=== PATIENT | female | born 1960 | race Caucasian/White ===

== ENCOUNTER → 2018-01-04 11:21 | Outpatient (CLI) | payer BC, SELFPAY ==
[2018-01-04 11:36] LABS: HCT 34.3 % (36.0-46.0); HGB 11.5 g/dL (12.0-15.5)
== END ==
PROVIDERS: PCP Family Medicine; Visit Provider Student in an Organized Health Care Education/Training Program
DX: D50.8 Other iron deficiency anemias (principal)
CPT/HCPCS: 36415; 85014; 85018

== ENCOUNTER 2018-01-06 11:30 | Outpatient (RCR) | payer BC, SELFPAY ==
--- NOTE | 2017-12-14 08:06 | IE_ITS ---
Date: 12/14/17 Referring: Prashant Lazaro DO M.D. Diagnosis: Sciatica (L) side P.T. Diagnosis: (L) LE sciatica secondary to nerve root compromise and intrinsic core weakness SUBJECTIVE: History of Present Illness: Petros presents to PT reporting chronic hx of episodic (L) LE sciatica, with more recent presentation of central LBP in the past month. All pain is insidious and pain primarily occurs if she has been sitting too long or lying supine. She feels good when she is out moving around or when standing. She denies any weakness or paraesthesias to the (L) LE. Pain Ratin/10 in the PM hours and currently is a 8/10 when she is sitting. Pain Location: Central low back as well as the (R) medial leg and lateral leg. Pt is a poor historian. Prior Level of Function: WNL Current Level of Function: Cannot tolerate light sitting or lying supine. Lying on either side she gets (R) leg pain. Pt is awakening intermittently throughout the night due to pain. Previous Treatment: She did see a chiropractor in November which made her symptoms worst so she discontinued. She is fearful of starting PT. Comorbidities: Denies, chronic sciatica and LBP Falls in the last year: __X__ No ____Yes - How many? ____ - (if over 2, balance SM needs to be completed) Reported hospitalizations in the last year - __X__ No ____ Yes - Dates of admission/reason: Medications: Tumeric for pain assist and denies the need for modalities. Quality of Life: __X__ Good Standardized Measures: MOLBPDQ: __24% Disability __ LEFS: 38% Disability OBJECTIVE: Posture: Lordotic with mild anterior pelvic tilt. Poor voluntary posture of forward head protrusion of shoulders with no obvious deformities. Observation: (behavior, atrophy, skin color, etc.) Flat affect with poor core awareness. Gait: WNL, toe and heel walk WNL Palpation: Remarkable tenderness to palpation through the (R) sacral border, sciatic notch and through the (R) lumbar paraspinals. Edema: None ROM: Lumbar spine: flexion 45* Extension WNL but with slight degree of (L) rotation at end range (B) side bend reaches lateral tibial femoral joint lines but with more segmental hypomobility into (R) side bend. Rotation to 60* (B) and not symptomatic (B) LEs are WNL And non irritable but is guarded with movement of the (R) hip initially restricted to 20* of IR and ER but once able to get pt to relax she demonstrates good articular mobility but end range soft tissue restriction. Joint Accessory Motion: Hypomobile through the thoracic and lumbar spine, but again pt is guarded with central lumbar PAs. She has central discomfort as well as unilateral discomfort but local to the segment being mobilized with no peripheral symptoms. Strength: Grossly 5/5 throughout (B) LEs demonstrating very poor intrinsic strength, requiring a great deal of verbal instructions for proper TrA contraction as well as glute contraction. Unable to complete hooklying marching without pelvic rocking and cannot complete segmental bridge. She does this more with over activity of paraspinals. Neuro: WNL LE screen. Special Tests: Defer lumbar quadrant due to pain dominant condition and pt's fear of pain. Negative PAs, dural SLR results in (R) hamstring pain but no back symptoms. Figure 4 and supine twist resulting in (R) buttock pain on the (R) and LE is WNL. Treatment: IE: [id number] Patient Education: Develop and review an HEP focusing on TrA isometric activation, (R) sciatic nerve flossing stage 5 for specifics. KX applied to all codes ____ Yes __X__ No Manual therapy: (62781u0). STM throughout the (R) thoraco lumbar paraspinals, (R) sacral border, (R) piriformis, _X_ Neuro Re-education - (95451 x0): TrA isometric contraction in hooklying with verbal cueing required. Direct treatment time: 60 minutes Total treatment time: 60 minutes ASSESSMENT: Patient is a 56-year-old female, referred for PT services with the diagnosis of (R) sciatica. Patient presents with clinical signs and symptoms consistent with this dx secondary to probable lumbar generation and intrinsic core weakness , extensive tested avoided today due to pt's fear of pain. As her symptoms calm down we will be able to further investigate this as needed at that time. , as demonstrated by the following impairment level findings: Weak intrinsic core musculature, hypomobility through thoraco lumbar spine and soft tissue dysfunction through the thoraco lumbar region and sacral border on the (R) side , soft tissue restriction through the (R) hip girdle. Impairments are contributing to the following functional limitations: Inability to tolerate prolonged sitting or supine positions. Patient is assessed as: ____ Low 80101 __X__ Moderate 48432 ____ High 85988 complexity, based on the following: History: See comorbidities and social history. Examination: See above for functional limitations and impairments. Presentation: X Evolving Decision-Making: X Moderate complexity 38 % Disability based on LEFS, MOLPBDQ 24% disability. __X__ Patient requires skilled PT intervention to remediate the above functional limitations to return to: __X__ Return to full functional mobility Prognosis: __X__ Good STG: __6__ weeks. 1. Pt is able to tolerate sitting for up to 45 minutes at a time without pain exceeding a 2/10. 2. Pt has undisturbed sleep. LTG: __11__ weeks. __X__ Return to premorbid level of function. __X__ Return to full, pain-free, functional mobility. __X__ Independent with self-maintenance program. PLAN: Patient to be seen 2 x per week, for 11 weeks, adjusting frequency of visits per patient symptoms and response to treatment. Treatment to include: X NRE- For intrinsic lumbopelvic femoral body awareness and muscle strengthening. X Manual therapy - [id number]: For lumbo pelvic mobilization and soft tissue mobilization. X Therapeutic exercise - [id number]- For gross core and LE strengthening, whole body conditioning. Thank you for this referral. Please do not hesitate to contact me with any questions or concerns regarding this patient's plan of care.
--- NOTE | 2017-12-21 12:39 | PTTR_ITS ---
DATE: 12/21/17 SUBJECTIVE: Hurst better after last treatment. OBJECTIVE: KX applied to all codes N/A Manual therapy: ([id number]). R prolonged SLR R leg pull for lumbar decompression R U KTC, flexion based stretching R hip ER and sacral soft tissue stretching, utilizing mulligan belt for MWM into ER, flexion overpressure. Repeat to IR for general mobilization and desensitization of the lumbopelvic complex. R supine twist stretch, and figure stretch with only 20 * ER to patient tolerance L sidelying 90/90 leg drop, for R lumbar decompression and facet gapping. L sidelying log roll mobilization, grade 4 STM R sacral border and sciatic notch IASTM down regulation thoracic and lumbar paraspinals. End with moist hot pack x 10 minutes post treatment, unsupervised. Direct treatment time: 30 minutes Total treatment time: 30 minutes
--- NOTE | 2017-12-23 14:00 | PTTR_ITS ---
DATE: 12/23/17 SUBJECTIVE: Petros stating she has not had any pain while sitting. Her main complaint is of some mild discomfort this morning when lying in bed trying to extend her R leg. She had discomfort down her R posterior thigh, but otherwise has had minimal pain since initiating PT. She is struggling with transverse abdominal activation and would like to review this. Pain number: [] Functional gains: [] Functional losses: [] Compliant with HEP: [] Yes [] No OBJECTIVE: [] KX applied to all codes [] Manual therapy: ([id number]).R prolonged straight leg raise Mulligan SLR, sciatic nerve flossing x 10 to the RLE, R hip IR and ER limited to 10 degrees due to pt guarding. Utilize Mulligan belt for lateral gliding and maintain this while performing hip flexion to 130 degrees. Then complete both IR and ER MWM into respective motions at a grade IV oscillation, followed by figure IV stretching as well as supine twist with improved mobility and reduced pain. L side lying complete log roll mobilization applying traction as well as rotational movement to lumbar spine of a grade IV oscillation. Unilateral PAs to the thoracic and lumbar segments of grade IV. STM consisting of thoracic and lumbar paraspinal release with pelvic traction. Deep strumming through L thoracic paraspinals,where more tension was appreciated through the R sacral border and sciatic notch. * X Neuro Re-education - (85499 x1):Hook lying static TRA isometric, with pt requiring verbal and manual cues for proper activation. Up regulation strumming to the transverse abdominal fasciae. Pt holds for 1 min, unable to hold statically for the entire minute, however, having to take breaks and she does hold her breath, so cuing needed for proper breathing. Direct treatment time: 40 min Total treatment time: 40 min Assessment: As per subjective report, improvement in symptoms since initiating PT. While she did require alot of verbal cuing for intrinsic activation today, this was certainly greatly improved compared to IE, so her body awareness is improving. I don't see it appropriate to proceed into any dynamic closed chain movements; however, until she demonstrates better static control of her intrinsics, to encourage proper body awareness and activation. Has fascial sling tension through the R sacral border and L lat and thoracic paraspinals consistent with suspicion of R lumbar nerve root compromise. In any event, she is improving to PT management per subjective report. Plan: Continue per POC 2x/week, with future treatments working on progression of intrinsic lumbar stabilization via closed chain hook lying activities and continued manual mobilization for R sciatic nerve mobility improvements, decompression through the R lumbar spine and STM. MYRON/fw
--- NOTE | 2017-12-28 13:07 | PTTR_ITS ---
DATE: 12/28/17 SUBJECTIVE: Pt reporting continued discomfort into her right buttock especially when sitting. She has been performing her stretches and working on her Kegel at home although does not know if she is doing it right. OBJECTIVE: Manual therapy: ([id number]). Provide mobilizations with movement utilizing Mulligan belt providing lateral distraction at the right hip while mobilizing into hip flexion to 110 degrees. Internal and external rotation stretching in 90 /90 position at the right hip. Sciatic nerve flossing in SLR position followed by Mulligan SLR x 10 reps. In prone perform DTM to the piriformis and glut musculature and trigger point release to the piriformis. Also work into her lumbar paraspinals bilaterally and right QL with less tone appreciated here. Therapeutic procedures ([id number]). * X HEP review: Review Kegel, diaphragmatic breathing techniques and PPT in hooklying position. Spend a significant amount of time here working on appropriate completion, body awareness and breathing techniques. Defer advancing intrinsic strengthening today due to the difficulty she has with isometric TrA. She will continue working on this at home increasing to 3 minute isometric with appropriate breathing techniques. Direct treatment time: 30 minutes Total treatment time: 30 minutes Dodie Ardon PTA
--- NOTE | 2017-12-30 10:30 | PTTR_ITS ---
DATE: 12/30/17 SUBJECTIVE: Patient notes continued discomfort down the posterior aspect of her R leg, as well as some central LBP into her glut musculature. She notes she has been practicing her intrinsic strengthening exercises at home. She is unsure if she is performing these correctly. Manual therapy: (23282w3). Patient received mobilization with movement at the R hip utilizing Mulligan belt for lateral distraction while bringing her into flexion, IR/ER. She received stretching of her piriformis, hamstrings, also applied sciatic nerve flossing in SLR position as well as Mulligan SLR x10 reps. In prone position, deep tissue mobilization techniques applied through the glut and piriformis musculature. Less tone appreciated through the paraspinals of the lumbar spine and QL. Trigger point release performed to the pirformis. Therapeutic procedures (09171w5). Review intrinsic stabilization exercises including diaphragmatic breathing, posterior pelvic tilting and Kegel activation. The patient does appear to have better understanding of activating her TRA. We progress this to mini marching with leg elevated on wedge pillow. She requires verbal and tactile cueing for appropriate movement mechanics, breathing techniques. She is going to start working on this at home. Direct treatment time: 30 mins Total treatment time: 40 mins (moist heat to lumbar spine x10 mins in prone no charge) LB/dl
--- NOTE | 2018-01-04 10:30 | PTTR_ITS ---
DATE: 01/04/18 SUBJECTIVE: Petrso reporting she continues to have pain in the R leg when extending her leg at night time, when changing position. Continues to have some R sided low back pain with sitting. She does feel that her symptoms are slightly improved, but nothing remarkable. She admits to not being overly compliant with her core activation. OBJECTIVE: Manual therapy: ([id number]). R prolonged SLR, Mulligan mobilization to the R hip with lateral glide mobilizing into flexion, ER/IR MWM, The patient having some anterior femoral and groin pain throughout, complete sustained AP hold and then completed further mobilization, which allowed for mobility to return to WNL, compared to initial 10 degrees of ER/IR which was painful. The completed cross body and figure 4 stretching, maintaining AP mobilization, lateral mobilization of the hip in respect to her pain. In L sidelying log roll mobilization at a grade 4 and 90/90 decompression of legs with legs over edge of the plinth to R low back. When completing 90/90 decompression, I recognize that her R femur tends to rest in IR, this leads to further strength exam. Strength: In prone, she is able to complete L leg extension with good stability. R hip extension she has pelvic rock and with L shoulder/lat lift off, she also has pelvic rock and almost complete lift off of the R LE. This indicates significant R glut weakness and intrinsic weakness. Therapeutic procedures (08867e3). L sidelying R clam, up regulation through the R glut med for facilitation. Cueing throughout for proper intrinsic core activation. Prone R glut activation with hip extension x10 L UE flexion x10 L UE and L leg lift off in prone x10. All are written up for HEP (see chart for specifics) * Direct treatment time: 45 mins Total treatment time: 45 mins A: Petros only making minimal gains since initiating PT. She does demonstrate some limitations through the R hip, which could potentially be a contributing factor to her R low back pain. Also discovered some R hip girdle and glut weakness today, contributing to her lumbar instability and intrinsic weakness. I attended to both of these findings today and will see how she responds. P: Proceed per POC, progress R glut and posterior fascial sling recruitment. JH/dl
--- NOTE | 2018-01-06 12:14 | PTTR_ITS ---
DATE: 01/06/18 SUBJECTIVE: Has felt great since last treatment, with no pain when changing position in bed. OBJECTIVE: KX applied to all codes: N/A Manual therapy: ([id number]). R prolonged SLR, and mid line cross Distraction of R FA joint at 90* with ER and IR, followed by Brenden PARSONM into ER, with lateral and AP glide, and Figure 4 stretch with AP glide. Log roll mobilization for decompression of R LB, grade 4++. Followed by 90/90 decompression. L UPA's grade 4++, R UPA's 4--. Thoracic PA's grade 4++ with multiple cavitations. Patient initially very limited, ut responds well to treatment with good motion restored. Seated thoracic rotation with grade 4 overpressure oscillations into end range. Review HEP. Direct treatment time: 30 minutes Total treatment time: 30 minutes
== END 2018-01-07 23:59 | disposition home or self-care (01) ==
LOC: PT 11:30
PROVIDERS: PCP Family Medicine; Referring Provider Family Medicine; Visit Provider Family Medicine
DX: M54.42 Lumbago with sciatica, left side (principal); G54.4 Lumbosacral root disorders, not elsewhere classified; M62.81 Muscle weakness (generalized)
CPT/HCPCS: 97110; 97112; 97140; 97162

== ENCOUNTER 2018-02-07 08:31 | Outpatient (CLI) | payer BC, SELFPAY ==
[2018-02-07 09:06] LABS: Absolute Basophil Count 0.01 k/cumm (0.0-0.2); Absolute Eosinophil Count 0.04 k/cumm (0.0-0.7); Absolute Lymphocyte Count 1.39 k/cumm (1.2-3.4); Absolute Monocyte Count 0.21 k/cumm (0.11-0.7); Absolute Neutrophil Count 1.03 k/cumm (1.2-6.7); Basophils % 0.4; Eosinophils % 1.5; HCT 36.1 % (36.0-46.0); HGB 11.9 g/dL (12.0-15.5); Lymphocytes % 51.9; Monocytes % 7.8; Neutrophils % 38.4; Platelet Count 231 x1000/uL (130-400); RBC 3.84 m/cumm (4.00-5.20); RBC Distribution Width 14.1 % (11.7-14.6); White Blood Cell Count 2.68 k/cumm (4.4-10.8)
[2018-02-07 09:51] LABS: ALT 29 U/L (12-78); AST 24 U/L (15-37); Albumin 3.8 g/dL (3.4-5.0); Alkaline Phosphatase 66 U/L (46-116); Anion Gap 8.8 mmol/L (3-11); BUN 9 mg/dL (7-18); Bilirubin, Total 0.3 mg/dL (0.2-1.0); CO2 26.2 mmol/L (21.0-32.0); Calcium 9.1 mg/dL (8.5-10.1); Chloride 105 mmol/L (98-107); Diff Comment Diff Reviewed; Glucose 83 mg/dL (70-100); Potassium 4.4 mmol/L (3.5-5.1); RBC Morphology Normal; Sodium 140 mmol/L (136-145); Total Protein 6.7 g/dL (6.4-8.2)
[2018-02-09 12:37] LABS: Ferritin 35 ng/mL (8-388)
[2018-02-10 10:37] LABS: Transferrin 195 mg/dL (201-352)
== END 2018-02-07 08:51 ==
PROVIDERS: PCP Family Medicine; Visit Provider Naturopath
DX: D64.9 Anemia, unspecified (principal)
CPT/HCPCS: 36415; 80053; 82728; 84466; 85025

== ENCOUNTER 2018-07-19 10:02 | Outpatient (CLI) | payer BC, SELFPAY ==
[2018-07-19 11:08] LABS: HCT 34.2 % (36.0-46.0); HGB 11.3 g/dL (12.0-15.5); Mean Corpuscular Hemoglobin 31.9 pg (27.0-33.0); Mean Corpuscular Volume 96.6 fL (80-95); Mean Platelet Volume 10.5 fL (8.0-11.0); Platelet Count 249 x1000/uL (130-400); RBC 3.54 m/cumm (4.00-5.20); RBC Distribution Width 13.2 % (11.7-14.6); White Blood Cell Count 2.85 k/cumm (4.4-10.8)
[2018-07-19 11:31] LABS: Anion Gap 7.9 mmol/L (3-11); BUN 9 mg/dL (7-18); CO2 27.1 mmol/L (21.0-32.0); CREATININE 0.72 mg/dL (0.55-1.02); Calcium 8.9 mg/dL (8.5-10.1); Chloride 106 mmol/L (98-107); Glucose 96 mg/dL (70-100); Potassium 4.3 mmol/L (3.5-5.1); Sodium 141 mmol/L (136-145)
[2018-07-19 11:34] LABS: Iron 60 ug/dL (50-175); Total Iron Binding Capacity 260 ug/dL (250-450); Transferrin Sat 23 % (15-50)
[2018-07-19 11:48] LABS: Ferritin 24 ng/mL (8-388)
[2018-07-19 12:11] LABS: Absolute Neutrophil Count 0.97 k/cumm (1.2-6.7)
[2018-07-19 12:12] LABS: Absolute Monocyte Count 0.29 k/cumm (0.11-0.7); Diff Comment Manual Differential; RBC Morphology Normal
== END 2018-07-19 10:22 ==
PROVIDERS: Student in an Organized Health Care Education/Training Program; PCP Family Medicine; Visit Provider Naturopath
DX: D64.9 Anemia, unspecified (principal); E46 Unspecified protein-calorie malnutrition
CPT/HCPCS: 36415; 80048; 85027; 82728; 83540; 83550; 85025

== ENCOUNTER 2018-11-17 11:30 | Outpatient (CLI) | payer BC, SELFPAY ==
[2018-11-17 12:10] LABS: Absolute Basophil Count 0.01 k/cumm (0.0-0.2); Absolute Eosinophil Count 0.05 k/cumm (0.0-0.7); Absolute Lymphocyte Count 1.79 k/cumm (1.2-3.4); Absolute Monocyte Count 0.23 k/cumm (0.11-0.7); Absolute Neutrophil Count 0.91 k/cumm (1.2-6.7); Basophils % 0.3; Eosinophils % 1.7; HCT 35.6 % (36.0-46.0); HGB 11.6 g/dL (12.0-15.5); Lymphocytes % 59.9; Mean Corp. HGB Concentration 32.6 g/dL (32.0-36.0); Mean Corpuscular Hemoglobin 30.7 pg (27.0-33.0); Mean Corpuscular Volume 94.2 fL (80-95); Mean Platelet Volume 10.4 fL (8.0-11.0); Monocytes % 7.7; Neutrophils % 30.4; Platelet Count 238 x1000/uL (130-400); RBC 3.78 m/cumm (4.00-5.20); RBC Distribution Width 13.1 % (11.7-14.6); White Blood Cell Count 2.99 k/cumm (4.4-10.8)
[2018-11-17 12:35] LABS: Iron 82 ug/dL (50-175); Total Iron Binding Capacity 272 ug/dL (250-450); Transferrin Sat 30 % (15-50)
[2018-11-17 12:37] LABS: Ferritin 22 ng/mL (8-388)
[2018-11-17 12:40] LABS: Vitamin B12 > 2000 pg/mL (193-986)
== END 2018-11-17 11:50 ==
PROVIDERS: PCP Student in an Organized Health Care Education/Training Program; Visit Provider Internal Medicine Hematology & Oncology
DX: D50.8 Other iron deficiency anemias (principal); D50.9 Iron deficiency anemia, unspecified
CPT/HCPCS: 36415; 82607; 82728; 83540; 83550; 85025

== ENCOUNTER 2019-03-09 11:59 | Outpatient (CLI) | payer BC, SELFPAY ==
[2019-03-09 13:03] LABS: HCT 34.4 % (36.0-46.0); HGB 11.3 g/dL (12.0-15.5); Mean Corp. HGB Concentration 32.8 g/dL (32.0-36.0); Mean Corpuscular Hemoglobin 30.7 pg (27.0-33.0); Mean Corpuscular Volume 93.5 fL (80-95); Mean Platelet Volume 9.9 fL (8.0-11.0); Platelet Count 269 x1000/uL (130-400); RBC 3.68 m/cumm (4.00-5.20); RBC Distribution Width 13.5 % (11.7-14.6); White Blood Cell Count 5.96 k/cumm (4.4-10.8)
[2019-03-09 14:16] LABS: ALT 26 U/L (14-59); AST 22 U/L (15-37); Albumin 3.8 g/dL (3.4-5.0); Alkaline Phosphatase 64 U/L (46-116); Anion Gap 8.7 mmol/L (3-11); BUN 10 mg/dL (7-18); Bilirubin, Total 0.5 mg/dL (0.2-1.0); CO2 27.3 mmol/L (21.0-32.0); Calcium 8.8 mg/dL (8.5-10.1); Chloride 106 mmol/L (98-107); Glucose 90 mg/dL (70-100); Potassium 4.6 mmol/L (3.5-5.1); Sodium 142 mmol/L (136-145); Total Protein 6.7 g/dL (6.4-8.2)
== END 2019-03-09 12:19 ==
PROVIDERS: PCP Student in an Organized Health Care Education/Training Program; Visit Provider Student in an Organized Health Care Education/Training Program
DX: B99.9 Unspecified infectious disease (principal); K82.9 Disease of gallbladder, unspecified; R19.8 Other specified symptoms and signs involving the digestive system and abdomen
CPT/HCPCS: 36415; 80053; 85027

== ENCOUNTER 2019-04-21 11:38 | Outpatient (CLI) | payer BC, SELFPAY ==
[2019-04-21 12:40] LABS: Absolute Basophil Count 0.01 k/cumm (0.0-0.2); Absolute Eosinophil Count 0.04 k/cumm (0.0-0.7); Absolute Lymphocyte Count 1.67 k/cumm (1.2-3.4); Absolute Monocyte Count 0.24 k/cumm (0.11-0.7); Absolute Neutrophil Count 1.44 k/cumm (1.2-6.7); Basophils % 0.3; Eosinophils % 1.2; HCT 34.4 % (36.0-46.0); HGB 11.2 g/dL (12.0-15.5); Lymphocytes % 49.1; Mean Corp. HGB Concentration 32.6 g/dL (32.0-36.0); Mean Corpuscular Hemoglobin 30.4 pg (27.0-33.0); Mean Corpuscular Volume 93.2 fL (80-95); Mean Platelet Volume 9.9 fL (8.0-11.0); Monocytes % 7.1; Neutrophils % 42.3; Platelet Count 287 x1000/uL (130-400); RBC 3.69 m/cumm (4.00-5.20); RBC Distribution Width 13.5 % (11.7-14.6)
[2019-04-21 13:14] LABS: Iron 74 ug/dL (50-170); Total Iron Binding Capacity 268 ug/dL (250-450); Transferrin Sat 28 % (15-50)
[2019-04-21 13:40] LABS: Ferritin 24 ng/mL (8-252)
[2019-04-21 13:44] LABS: Vitamin B12 > 2000 pg/mL (193-986)
== END 2019-04-21 11:58 ==
PROVIDERS: PCP Student in an Organized Health Care Education/Training Program; Visit Provider Internal Medicine Hematology & Oncology
DX: D50.8 Other iron deficiency anemias (principal)
CPT/HCPCS: 36415; 82607; 82728; 83540; 83550; 85025

== ENCOUNTER 2019-08-14 13:11 | Emergency (ER) | payer BC, SELFPAY ==
[2019-08-14 13:15] VITALS: BP 120/68; PULSE 88; RESP 16; TEMP 36.9; O2SAT 98
--- NOTE | 2019-08-14 13:41 | W.ED.GENAD ---
Discharge Plan Disposition Patient Disposition: HOME Condition: Stable Discharge Details Chief Complaint: Sorethroat Clinical Impression: Allergic rhinitis, Chronic sore throat Primary Care Provider: Padma Bhatia ED Provider: Vanessa Chung Home Meds and New Rx's Prescriptions: New ranitidine HCl 150 mg tablet 150 mg PO BID 10 Days Qty: 20 RF: 0 No Action diphenhydramine HCl [Benadryl] 25 mg capsule 25 mg PO QHS PRN (Reason: sleep) Qty: 90 RF: 0 tretinoin 0.1 % cream 1 applic TP Q OTHER DAY Qty: 45 RF: 0 melatonin 3 MG tablet extended release 3 mg PO HS Qty: 90 RF: 3 ascorbic acid (vitamin C) [Vitamin C] 1,000 MG tablet 1,000 mg PO DAILY RF: 0 cholecalciferol (vitamin D3) 10,000 UNIT tablet 10,000 unit PO DAILY RF: 0 krill oil 500 MG capsule 500 mg PO DAILY RF: 0 Probiotic 1 EACH capsule 1 ea PO DAILY RF: 0 iodine DAILY RF: 0 coenzyme Q10 [Co Q-10] 10 MG capsule 0 PO as directed RF: 0 turmeric (bulk) 1 GM powder 1 gm Miscellaneous DAILY RF: 0 CeraVe lotion TP RF: 0 vitamin b 12 IM .weekly RF: 0 ascorbic acid (vitamin C) 1,000 mg tablet 1 gm PO DAILY RF: 0 ferrous sulfate 325 mg (65 mg iron) tablet 325 mg PO DAILY RF: 0 Quercetin 1,000 PO DAILY RF: 0 Discharge Instructions Instructions: Pharyngitis (ED), Allergies (ED) Additional Instructions: Follow up with primary care provider in 3-5 days. Return to ED sooner if any worsening or concerns. Increase oral fluids. Take medications as directed. Referrals: Padma Bhatia DO [Primary Care Provider] - Medical Decision Making 58-year-old female presents with itchy throat x1 month. She denies any fever, cough, ear pain or any other associated symptoms. She is a non-smoker. She states that she had a similar type of symptoms 1 year ago but it was different. She is requesting a COV ID 19 test will order outpatient and flu a and B swab. Strep swab obtained in department, outpatient CO VID 19 and flu swab ordered, patient was prescribed ranitidine 150 mg twice a day x7 days for possible GERD. At this time I do not feel like this is anything acute or bacterial since been going on for over a month. Patient has no other symptoms no cough, no fever, no ear pain. Instructed to follow-up with PCP in 3 to 5 days, verbalized understanding. Received call from pharmacy due to ranitidine 150 mg being pulled off the market. Substitute with famotidine 40 mg daily x7 days. Differential diagnosis includes but is not limited to influenza, allergic rhinitis, thyroiditis, strep throat, throat cancer. HPI General Mode of arrival: ambulatory. Date/Time Provider Initiated Documentation: 08/14/19 13:12. Limitations to Documentation: no limitations. Information obtained by: patient. HPI Narrative: 58-year-old female presents with itchy throat x1 month. She denies any fever, cough, ear pain or any other associated symptoms. She is a non-smoker. She states that she had a similar type of symptoms 1 year ago but it was different. She is requesting a COV ID 19 test will order outpatient and flu a and B swab. Related Data Home Medications Medication Instructions Recorded Confirmed melatonin 3 mg PO HS #90 tab 04/24/15 07/12/19 ascorbic acid (vitamin C) [Vitamin 1,000 mg PO DAILY 08/19/16 07/12/19 C] cholecalciferol (vitamin D3) 10,000 unit PO DAILY 08/19/16 07/12/19 Iodine DAILY 11/11/17 07/12/19 Lactobacillus acidophilus 1 ea PO DAILY 11/11/17 07/12/19 [Probiotic] krill oil 500 mg PO DAILY 11/11/17 07/12/19 coenzyme Q10 [Co Q-10] 0 PO as directed 12/07/17 07/12/19 turmeric (bulk) 1 gm MISCELLANEOUS DAILY 12/29/17 08/14/19 diphenhydramine HCl 25 mg capsule 25 mg PO QHS PRN #90 cap 06/26/18 08/14/19 ceramides 1,3,6-11 applic TP ml 08/25/18 07/12/19 vitamin b 12 IM .weekly 03/08/19 07/12/19 ascorbic acid (vitamin C) 1,000 mg 1 gm PO DAILY tab 06/07/19 07/12/19 tablet ferrous sulfate 325 mg (65 mg 325 mg PO DAILY tab 06/07/19 08/14/19 iron) tablet tretinoin 0.1 % topical cream 1 applic TP Q OTHER DAY #45 gm 06/14/19 07/12/19 Quercetin 1,000 PO DAILY 08/14/19 ranitidine HCl 150 mg PO BID 10 Days #20 tab 08/14/19 Previous Rx's Medication Instructions Recorded diphenhydramine HCl 25 mg capsule 25 mg PO QHS PRN #90 cap 06/26/18 tretinoin 0.1 % topical cream 1 applic TP Q OTHER DAY #45 gm 06/14/19 ranitidine HCl 150 mg PO BID 10 Days #20 tab 08/14/19 Allergies Allergy/AdvReac Type Severity Reaction Status Date / Time venlafaxine Allergy Mild MILD Verified 08/14/19 13:19 ITCHING nitrofurazone Allergy Unknown Verified 08/14/19 13:19 sertraline Allergy Unknown unknown Verified 08/14/19 13:19 Sulfa (Sulfonamide AdvReac HEADACHES Verified 08/14/19 13:19 Antibiotics) General Stated Complaint: Sorethroat RICH: 5 Review of Systems Narrative: Constitutional: Negative for weight loss, alert and oriented, well groomed, normal body habitus, appears comfortable. HEENT: Denies trauma, headaches, blurry vision, nasal discharge, positive itchy throat, no trouble swallowing. Chest: Denies chest pain, palpitations, irregular rhythm, hypertension. Respiratory: Denies Shortness of breath, cough, hemoptysis. GI: Denies abdominal pain, nausea, vomiting, diarrhea, constipation. : Denies dysuria, hematuria, flank pain, rectal bleeding. Neuro: Denies dizziness, blurry vision, weakness, syncope, headache or facial numbness. Hematologic: Denies easy bruising, intolerance to heat or cold, hair loss. [facility] Medical History Chronic leukopenia Ambar-menopause (05/17/15) Missed 2mo of menses. Occassional VMS. Surgical History Cystectomy, Mini Lap Ovarian 05/23/10; AGE 16 Dilation and curettage SAB History of exploratory laparotomy (Inactive) Laparotomy RLQ pain, normal findings Status post dilation and curettage (Inactive) Status post ovarian cystectomy (Acute) Family History Mother Personal history of malignant neoplasm Uterine CA Father , heart prob. at age 76. Heart disease PACEMAKER Stroke Sister No problems noted. Sister No problems noted. Brother No problems noted. Brother No problems noted. Brother Personal history of malignant neoplasm BRAIN TUMOR Social History Smoking/Tobacco Use Status: Never Alcohol Intake: never Drug use: Never Substance use type: does not use Housing: house Current gender identity: female What type of physical activity do you participate in: other Details: hiking Exam Narrative Exam Narrative: Constitutional: Allert and oriented x3. Appears stated age. Normal body habitus. Head: Normocephalic, no trauma. Eyes: Pupils PERRLA, Red reflex noted, EOM's intact. Eyelids symmetrical withour lesions, discharge, or swelling. ENT: Bilateral TM's WNL, External ear normal to inspection, no mastoid TTP, swelling, or erythema, Nasal turbinates WNL, no nasal discharge. Normal dentition, Posterior pharynx slightly erythemic, cobblestone appearance, no exudate. No cervical masses no lymphadenopathy. Chest: RRR, Normal S1, S2, distal pulses intact. Resp: Lungs clear to auscultation bilaterally, no wheezes, rales, or rhonchi. Musculoskeletal: Normal gait, 5/5 strength to all four extremities. Skin: No suspicious rashes or lesions. Capillary refill less than 2 sec. Neurologic: Cranial nerves II-XII intact. Alert and oriented x 3. DTR's intact. Hematologic/Lymphatic: No ecchymosis, no lymphadenopathy. Course Vital Signs Vital signs: Vital Signs Temperature 36.9 C 08/14/19 13:15 Pulse 88 08/14/19 13:15 Respiratory Rate 16 08/14/19 13:15 Blood Pressure 120/68 08/14/19 13:15 Pulse Oximetry 98 08/14/19 13:15 Temperature 36.9 C 08/14/19 13:15 Temperature Source Skin 08/14/19 13:15 Pulse 88 08/14/19 13:15 Respiratory Rate 16 08/14/19 13:15 Blood Pressure 120/68 08/14/19 13:15 Blood Pressure Position Sitting 08/14/19 13:15 Pulse Oximetry 98 08/14/19 13:15 Oxygen Delivery Method Room Air 08/14/19 13:15 Oxygen Flow Rate 0 08/14/19 13:15 Pain Level 0 08/14/19 13:15
== END 2019-08-14 13:55 | disposition home or self-care (01) ==
LOC: ER 13:52
PROVIDERS: Emergency Provider Registered Nurse Emergency; PCP Student in an Organized Health Care Education/Training Program
DX: J30.89 Other allergic rhinitis (principal); J02.9 Acute pharyngitis, unspecified; G89.29 Other chronic pain
CPT/HCPCS: 87880; 99283; 87081

== ENCOUNTER 2020-08-20 03:51 | Outpatient (CLI) | payer BC, SELFPAY ==
[2020-08-20 11:32] LABS: Abs Immature Grans 0.01 10^3/uL (0.0-0.06); Absolute Basophil Count 0.01 10^3/uL (0.0-0.2); Absolute Eosinophil Count 0.06 10^3/uL (0.0-0.7); Absolute Lymphocyte Count 1.89 10^3/uL (1.2-3.4); Absolute Monocyte Count 0.24 10^3/uL (0.1-0.8); Absolute Neutrophil Count 1.33 10^3/uL (1.2-6.7); Basophils % 0.3; Eosinophils % 1.7; HCT 35.3 % (36.0-46.0); HGB 11.5 g/dL (11.2-15.7); Immature Grans % 0.3; Lymphocytes % 53.4; MCH 30.7 pg (27.0-33.0); MCHC 32.6 % (32.0-36.0); MCV 94.1 fL (80-95); MPV 9.7 fL (8.0-11.0); Monocytes % 6.8; Neutrophils % 37.5; Nucleated RBC 0 %; Platelet Count 280 10^3/uL (130-400); RBC 3.75 10^6/uL (3.93-5.22); RDW-SD 42.1 fL; WBC 3.54 10^3/uL (4.4-10.8)
[2020-08-20 11:48] LABS: Ferritin 16 ng/mL (8-252)
[2020-08-20 12:18] LABS: Iron 120 ug/dL (50-170); Total Iron Binding Capacity 325 ug/dL (250-450); Transferrin Sat 37 % (15-50)
== END 2020-08-20 03:52 | disposition home or self-care (01) ==
LOC: LBO 03:51
PROVIDERS: PCP Student in an Organized Health Care Education/Training Program; Visit Provider Internal Medicine Hematology & Oncology
DX: D50.8 Other iron deficiency anemias (principal); E53.8 Deficiency of other specified B group vitamins
CPT/HCPCS: 36415; 82728; 83540; 83550; 85025

== ENCOUNTER 2021-08-08 01:32 | Outpatient (CLI) | payer BC, SELFPAY | END 2021-08-08 01:33 | disposition home or self-care (01) | PROVIDERS: PCP Student in an Organized Health Care Education/Training Program; Visit Provider Student in an Organized Health Care Education/Training Program ==

== ENCOUNTER 2021-08-12 04:25 | Outpatient (CLI) | payer BC, SELFPAY ==
[2021-08-12 08:33] LABS: HCT 34.2 % (36.0-46.0); HGB 10.9 g/dL (11.2-15.7); MCH 29.4 pg (27.0-33.0); MCHC 31.9 % (32.0-36.0); MCV 92.2 fL (80-95); MPV 9.4 fL (8.0-11.0); Platelet Count 237 10^3/uL (130-400); RBC 3.71 10^6/uL (3.93-5.22); RDW 13.4 % (11.7-14.6); RDW-SD 45.3 fL; WBC 3.15 10^3/uL (4.4-10.8)
[2021-08-12 10:37] LABS: ALT 25 U/L (14-59); AST 24 U/L (15-37); Alkaline Phosphatase 63 U/L (46-116); Anion Gap 10.2 mmol/L (3-11); BUN 12 mg/dL (7-18); Bilirubin, Total 0.3 mg/dL (0.2-1.0); CO2 27.8 mmol/L (21.0-32.0); CREATININE 0.7 mg/dL (0.55-1.02); Calcium 8.9 mg/dL (8.5-10.1); Calculated LDL 104 mg/dL (<100); Chloride 105 mmol/L (98-107); Cholesterol 209 mg/dL (<200); Glucose 81 mg/dL (74-106); HDL Cholesterol 99 mg/dL (40-60); Potassium 4.3 mmol/L (3.5-5.1); Sodium 143 mmol/L (136-145); TSH (W/Ref FT4) 4.42 uIU/mL (0.36-3.74); Total Protein 6.9 g/dL (6.4-8.2); Triglyceride 32 mg/dL (<150)
[2021-08-12 10:58] LABS: FREE T4 0.79 ng/dL (0.76-1.46)
[2021-08-14 08:19] LABS: Vitamin D 25 Total 120.8 ng/mL (30-100)
== END 2021-08-12 04:26 | disposition home or self-care (01) ==
LOC: LBO 04:25
PROVIDERS: PCP Student in an Organized Health Care Education/Training Program; Visit Provider Student in an Organized Health Care Education/Training Program
DX: R53.83 Other fatigue (principal); F32.9 Major depressive disorder, single episode, unspecified; D50.8 Other iron deficiency anemias; K21.9 Gastro-esophageal reflux disease without esophagitis; K72.90 Hepatic failure, unspecified without coma; K90.9 Intestinal malabsorption, unspecified; N93.8 Other specified abnormal uterine and vaginal bleeding; L29.8 Other pruritus; G43.909 Migraine, unspecified, not intractable, without status migrainosus; Z13.220 Encounter for screening for lipoid disorders
CPT/HCPCS: 36415; 80053; 80061; 82306; 85027; 84439; 84443

== ENCOUNTER 2021-08-14 07:55 | Outpatient (CLI) | payer BC, SELFPAY | END 2021-08-14 07:56 | disposition home or self-care (01) | LOC: RT 07:56 | PROVIDERS: PCP Student in an Organized Health Care Education/Training Program; Visit Provider Student in an Organized Health Care Education/Training Program ==

== ENCOUNTER 2021-08-22 01:15 | Outpatient (CLI) | payer BC, SELFPAY | END 2021-08-22 01:16 | disposition home or self-care (01) | LOC: RT 01:15 | PROVIDERS: PCP Student in an Organized Health Care Education/Training Program; Visit Provider Student in an Organized Health Care Education/Training Program ==

== ENCOUNTER 2021-09-03 04:31 | Outpatient (CLI) | payer BC, SELFPAY | END 2021-09-03 04:32 | disposition home or self-care (01) | LOC: LBO 04:31 | PROVIDERS: PCP Student in an Organized Health Care Education/Training Program; Visit Provider Internal Medicine Hematology & Oncology ==

== ENCOUNTER 2021-12-19 01:10 | Outpatient (CLI) | payer BC, SELFPAY ==
[2021-12-19 08:47] LABS: Abs Immature Grans 0.01 10^3/uL (0.0-0.06); Absolute Basophil Count 0.01 10^3/uL (0.0-0.2); Absolute Eosinophil Count 0.05 10^3/uL (0.0-0.7); Absolute Lymphocyte Count 1.79 10^3/uL (1.2-3.4); Absolute Monocyte Count 0.23 10^3/uL (0.1-0.8); Absolute Neutrophil Count 0.88 10^3/uL (1.2-6.7); Basophils % 0.3; Eosinophils % 1.7; HCT 35.9 % (36.0-46.0); HGB 11.9 g/dL (11.2-15.7); Immature Grans % 0.3; Lymphocytes % 60.3; MCH 30.4 pg (27.0-33.0); MCHC 33.1 % (32.0-36.0); MCV 92 fL (80-95); MPV 9.6 fL (8.0-11.0); Monocytes % 7.7; Neutrophils % 29.7; Platelet Count 288 10^3/uL (130-400); RBC 3.92 10^6/uL (3.93-5.22); RDW 12.9 % (11.7-14.6); RDW-SD 42.9 fL; WBC 2.97 10^3/uL (4.4-10.8)
[2021-12-19 09:08] LABS: Diff Comment Diff Reviewed; RBC Morphology Normal
[2021-12-19 09:41] LABS: ALT 27 U/L (14-59); AST 24 U/L (15-37); Albumin 4.1 g/dL (3.4-5.0); Alkaline Phosphatase 52 U/L (46-116); Anion Gap 8.5 mmol/L (3-11); BUN 8 mg/dL (7-18); Bilirubin, Total 0.3 mg/dL (0.2-1.0); CO2 26.5 mmol/L (21.0-32.0); CREATININE 0.7 mg/dL (0.55-1.02); Calcium 8.8 mg/dL (8.5-10.1); Chloride 104 mmol/L (98-107); Ferritin 23 ng/mL (8-252); Glucose 115 mg/dL (74-106); Potassium 4.2 mmol/L (3.5-5.1); Sodium 139 mmol/L (136-145); TSH (W/Ref FT4) 8.45 uIU/mL (0.36-3.74); Total Protein 7.3 g/dL (6.4-8.2)
[2021-12-19 09:42] LABS: Vitamin B12 > 2000 pg/mL (193-986)
[2021-12-19 09:43] LABS: Folate > 20.0 ng/mL (8.6-20.0)
[2021-12-19 09:45] LABS: Iron 64 ug/dL (50-170); Total Iron Binding Capacity 328 ug/dL (250-450); Transferrin Sat 20 % (15-50)
[2021-12-19 09:59] LABS: FREE T4 0.93 ng/dL (0.76-1.46)
[2021-12-22 05:43] LABS: Vitamin D 25 Total 91.6 ng/mL (30-100)
[2021-12-22 11:07] LABS: Lyme Ab w Rflx to Lyme Confirm Negative (Negative)
[2021-12-23 18:35] LABS: Anaplasma phagocytophilum Negative (Negative); B. miyamotoi PCR Negative (Negative); Babesia divergens/MO-1 Negative (Negative); Babesia duncani Negative (Negative); Babesia microti Negative (Negative); Ehrlichia chaffeensis Negative (Negative); Ehrlichia ewingii/canis Negative (Negative); Ehrlichia muris eauclairensis Negative (Negative)
== END 2021-12-19 01:11 | disposition home or self-care (01) ==
LOC: LBO 01:11
PROVIDERS: PCP Student in an Organized Health Care Education/Training Program; Visit Provider Student in an Organized Health Care Education/Training Program
DX: D64.9 Anemia, unspecified (principal); D72.819 Decreased white blood cell count, unspecified; G47.9 Sleep disorder, unspecified; E46 Unspecified protein-calorie malnutrition; E86.0 Dehydration; K76.9 Liver disease, unspecified; W57.XXXA Bitten or stung by nonvenomous insect and other nonvenomous arthropods, initial encounter; F41.9 Anxiety disorder, unspecified; G43.909 Migraine, unspecified, not intractable, without status migrainosus; R63.0 Anorexia; R79.89 Other specified abnormal findings of blood chemistry
CPT/HCPCS: 36415; 80053; 82306; 87798; 82607; 82728; 82746; 83540; 83550; 84439; 84443; 85025; 86618

== ENCOUNTER 2022-01-26 03:20 | Outpatient (CLI) | payer BC, SELFPAY ==
[2022-01-26 09:28] LABS: TSH 1.44 uIU/mL (0.36-3.74)
[2022-01-26 09:45] LABS: Iron 53 ug/dL (50-170)
== END 2022-01-26 03:21 | disposition home or self-care (01) ==
PROVIDERS: PCP Student in an Organized Health Care Education/Training Program; Visit Provider Naturopath
DX: D64.9 Anemia, unspecified (principal); G47.9 Sleep disorder, unspecified
CPT/HCPCS: 36415; 83540; 84436; 84443; 84480; 84481

== ENCOUNTER 2022-03-02 03:01 | Outpatient (CLI) | payer BC, SELFPAY ==
[2022-03-02 08:45] LABS: Abs Immature Grans 0.01 10^3/uL (0.0-0.06); Absolute Basophil Count 0.01 10^3/uL (0.0-0.2); Absolute Eosinophil Count 0.04 10^3/uL (0.0-0.7); Absolute Lymphocyte Count 1.46 10^3/uL (1.2-3.4); Absolute Monocyte Count 0.31 10^3/uL (0.1-0.8); Absolute Neutrophil Count 0.93 10^3/uL (1.2-6.7); Basophils % 0.4; Eosinophils % 1.4; HCT 32.4 % (36.0-46.0); HGB 10.8 g/dL (11.2-15.7); Immature Grans % 0.4; Lymphocytes % 52.9; MCH 30.3 pg (27.0-33.0); MCHC 33.3 % (32.0-36.0); MCV 91 fL (80-95); MPV 9.6 fL (8.0-11.0); Monocytes % 11.2; Neutrophils % 33.7; RBC 3.56 10^6/uL (3.93-5.22); RDW 13.1 % (11.7-14.6); RDW-SD 43.4 fL; Reticulocyte 1.7 % (0.5-2.4); WBC 2.76 10^3/uL (4.4-10.8)
[2022-03-02 09:43] LABS: Ferritin 32 ng/mL (8-252); T4 7.4 ug/mL (4.7-13.3); TSH 8.46 uIU/mL (0.36-3.74)
[2022-03-02 09:47] LABS: Diff Comment Agrees w/ Instrument; Platelet Count 235 10^3/uL (130-400); RBC Morphology Normal
[2022-03-02 17:13] LABS: T3,Free 2.5 pg/mL (2.8-5.3)
[2022-03-03 09:58] LABS: Transferrin 225 mg/dL (201-352)
== END 2022-03-02 03:02 | disposition home or self-care (01) ==
LOC: LBO 03:01
PROVIDERS: PCP Student in an Organized Health Care Education/Training Program; Visit Provider Naturopath
DX: E03.8 Other specified hypothyroidism (principal); D50.8 Other iron deficiency anemias
CPT/HCPCS: 36415; 82728; 84436; 84443; 84466; 84481; 85025; 85045

== ENCOUNTER 2022-05-06 02:37 | Outpatient (CLI) | payer BC, SELFPAY ==
[2022-05-06 13:20] LABS: Abs Immature Grans 0.02 10^3/uL (0.0-0.06); Absolute Basophil Count 0.01 10^3/uL (0.0-0.2); Absolute Eosinophil Count 0.06 10^3/uL (0.0-0.7); Absolute Lymphocyte Count 1.72 10^3/uL (1.2-3.4); Absolute Monocyte Count 0.24 10^3/uL (0.1-0.8); Absolute Neutrophil Count 1.63 10^3/uL (1.2-6.7); Basophils % 0.3; Eosinophils % 1.6; HCT 32.1 % (36.0-46.0); HGB 10.5 g/dL (11.2-15.7); Immature Grans % 0.5; Lymphocytes % 46.7; MCH 32.1 pg (27.0-33.0); MCHC 32.7 % (32.0-36.0); MCV 98 fL (80-95); MPV 9.6 fL (8.0-11.0); Monocytes % 6.5; Neutrophils % 44.4; Platelet Count 287 10^3/uL (130-400); RBC 3.27 10^6/uL (3.93-5.22); RDW 12.7 % (11.7-14.6); RDW-SD 45.8 fL; Reticulocyte 2.1 % (0.5-2.4); WBC 3.68 10^3/uL (4.4-10.8)
[2022-05-06 14:03] LABS: Ferritin 13 ng/mL (8-252); T4 7.5 ug/dL (4.7-13.3); TSH 3.57 uIU/mL (0.36-3.74)
[2022-05-06 14:36] LABS: Iron 79 ug/dL (50-170); Total Iron Binding Capacity 343 ug/dL (250-450)
[2022-05-06 22:22] LABS: T3,Free 3.3 pg/mL (2.8-5.3)
== END 2022-05-06 02:38 | disposition home or self-care (01) ==
LOC: LBO 02:37
PROVIDERS: PCP Student in an Organized Health Care Education/Training Program; Visit Provider Naturopath
DX: D50.9 Iron deficiency anemia, unspecified (principal); E61.1 Iron deficiency; E03.8 Other specified hypothyroidism; K59.09 Other constipation
CPT/HCPCS: 36415; 82728; 83540; 83550; 84436; 84443; 84481; 85025; 85045

== ENCOUNTER 2022-07-03 01:48 | Outpatient (CLI) | payer BC, SELFPAY ==
[2022-07-03 12:40] LABS: Absolute Basophil Count 0.01 10^3/uL (0.0-0.2); Absolute Eosinophil Count 0.03 10^3/uL (0.0-0.7); Absolute Lymphocyte Count 1.47 10^3/uL (1.2-3.4); Absolute Monocyte Count 0.23 10^3/uL (0.1-0.8); Absolute Neutrophil Count 0.83 10^3/uL (1.2-6.7); Basophils % 0.4; Eosinophils % 1.2; HCT 32.4 % (36.0-46.0); HGB 10.6 g/dL (11.2-15.7); Lymphocytes % 57.2; MCH 30.6 pg (27.0-33.0); MCHC 32.7 % (32.0-36.0); MCV 94 fL (80-95); MPV 11.1 fL (8.0-11.0); Monocytes % 8.9; Neutrophils % 32.3; Platelet Count 235 10^3/uL (130-400); RBC 3.46 10^6/uL (3.93-5.22); RDW 12.6 % (11.7-14.6); RDW-SD 43.1 fL; Reticulocyte 1.1 % (0.5-2.4); WBC 2.57 10^3/uL (4.4-10.8)
[2022-07-03 12:50] LABS: Diff Comment Diff Reviewed; RBC Morphology Normal
[2022-07-03 13:24] LABS: Iron 92 ug/dL (50-170); Total Iron Binding Capacity 299 ug/dL (250-450); Transferrin Sat 31 % (15-50)
[2022-07-03 13:39] LABS: Ferritin 10 ng/mL (8-252); TSH 5.26 uIU/mL (0.36-3.74)
[2022-07-03 14:00] LABS: FREE T4 0.86 ng/dL (0.76-1.46)
[2022-07-03 14:11] LABS: ALT 22 U/L (14-59); AST 24 U/L (15-37); Albumin 3.8 g/dL (3.4-5.0); Alkaline Phosphatase 52 U/L (46-116); Anion Gap 10.8 mmol/L (3-11); BUN 6 mg/dL (7-18); Bilirubin, Total 0.3 mg/dL (0.2-1.0); CO2 24.2 mmol/L (21.0-32.0); CREATININE 0.7 mg/dL (0.55-1.02); Calcium 8.4 mg/dL (8.5-10.1); Chloride 101 mmol/L (98-107); Estimated GFR 99.57 (mL/min/1.73m2); Glucose 82 mg/dL (74-106); Potassium 3.7 mmol/L (3.5-5.1); Sodium 136 mmol/L (136-145); Total Protein 6.6 g/dL (6.4-8.2)
[2022-07-08 18:22] LABS: Vitamin B12 >2000 pg/mL (211-911)
== END 2022-07-03 01:49 | disposition home or self-care (01) ==
LOC: LOS 01:48
PROVIDERS: Nurse Practitioner Adult Health; PCP Student in an Organized Health Care Education/Training Program; Visit Provider Naturopath
DX: D50.8 Other iron deficiency anemias (principal); D51.9 Vitamin B12 deficiency anemia, unspecified; E61.1 Iron deficiency; E03.8 Other specified hypothyroidism; K59.09 Other constipation
CPT/HCPCS: 36415; 80053; 82607; 82728; 83540; 83550; 84439; 84443; 84481; 85025; 85045

== ENCOUNTER 2023-05-25 04:46 | Outpatient (CLI) | payer BC, SELFPAY ==
[2023-05-27 22:39] LABS: Babesia divergens/MO-1 Negative (Negative); Babesia duncani Negative (Negative); Babesia microti Negative (Negative)
== END 2023-05-25 04:47 | disposition home or self-care (01) ==
LOC: LBO 04:46
PROVIDERS: PCP Family Medicine; Visit Provider Family Medicine
DX: B60.00 Babesiosis, unspecified (principal)
CPT/HCPCS: 36415; 87207; 87798

== ENCOUNTER 2023-08-03 09:08 | Outpatient (CLI) | payer BC, SELFPAY ==
[2023-08-03 13:27] LABS: Absolute Basophil Count 0.02 10^3/uL (0.0-0.2); Absolute Eosinophil Count 0.04 10^3/uL (0.0-0.7); Absolute Lymphocyte Count 1.69 10^3/uL (1.2-3.4); Absolute Monocyte Count 0.27 10^3/uL (0.1-0.8); Basophils % 0.7; Eosinophils % 1.3; HCT 33.3 % (36.0-46.0); HGB 10.9 g/dL (11.2-15.7); MCH 28.9 pg (27.0-33.0); MCHC 32.7 % (32.0-36.0); MCV 88 fL (80-95); MPV 10.3 fL (8.0-11.0); Monocytes % 8.9; Neutrophils % 33.1; Platelet Count 269 10^3/uL (130-400); RBC 3.77 10^6/uL (3.93-5.22); RDW 13.9 % (11.7-14.6); RDW-SD 44.7 fL; WBC 3.02 10^3/uL (4.4-10.8)
[2023-08-03 14:18] LABS: Iron 357 ug/dL (50-170); Total Iron Binding Capacity 443 ug/dL (250-450); Transferrin Sat 81 % (15-50)
[2023-08-03 14:21] LABS: TSH (W/Ref FT4) 3.85 uIU/mL (0.36-3.74)
[2023-08-03 14:36] LABS: ALT 93 U/L (14-59); AST 56 U/L (15-37); Albumin 3.9 g/dL (3.4-5.0); Alkaline Phosphatase 74 U/L (46-116); BUN 12 mg/dL (7-18); Bilirubin, Total 0.3 mg/dL (0.2-1.0); CREATININE 0.7 mg/dL (0.55-1.02); Calcium 8.6 mg/dL (8.5-10.1); Chloride 104 mmol/L (98-107); Estimated GFR 98.95 (mL/min/1.73m2); Ferritin 8 ng/mL (8-252); Glucose 102 mg/dL (74-106); Potassium 3.9 mmol/L (3.5-5.1); Sodium 139 mmol/L (136-145); Total Protein 7.5 g/dL (6.4-8.2); Vitamin B12 > 2000 pg/mL (193-986)
[2023-08-03 14:39] LABS: FREE T4 0.87 ng/dL (0.76-1.46)
[2023-08-04 09:33] LABS: Transferrin 344 mg/dL (201-352)
[2023-08-09 09:56] LABS: IgA 142 mg/dL (85-499); IgG 1063 mg/dL (610-1616); IgM 132 mg/dL (35-242)
[2023-08-09 14:12] LABS: ANA Interpretation Positive (Negative)
== END 2023-08-03 09:09 | disposition home or self-care (01) ==
LOC: LBO 09:08
PROVIDERS: Internal Medicine Hematology & Oncology; Physician Assistant; PCP Family Medicine; Visit Provider Naturopath
DX: D51.9 Vitamin B12 deficiency anemia, unspecified (principal); D50.8 Other iron deficiency anemias
CPT/HCPCS: 36415; 80053; 82784; 82607; 82728; 83540; 83550; 84439; 84443; 84466; 85025; 86038

== ENCOUNTER 2023-08-12 16:02 | Outpatient (REF) | payer BC, SELFPAY ==
[2023-08-13 12:43] LABS: Helicobacter pylori Ag, Feces Positive (Negative)
== END 2023-08-12 16:03 | disposition home or self-care (01) ==
LOC: LBN 16:02
PROVIDERS: PCP Family Medicine; Visit Provider Naturopath
DX: R12 Heartburn (principal); R19.5 Other fecal abnormalities; B96.81 Helicobacter pylori [H. pylori] as the cause of diseases classified elsewhere
CPT/HCPCS: 87338

== ENCOUNTER 2023-10-18 06:01 | Outpatient (CLI) | payer BC, SELFPAY ==
[2023-10-18 12:22] LABS: Absolute Basophil Count 0.01 10^3/uL (0.0-0.2); Absolute Eosinophil Count 0.05 10^3/uL (0.0-0.7); Absolute Lymphocyte Count 1.94 10^3/uL (1.2-3.4); Absolute Monocyte Count 0.25 10^3/uL (0.1-0.8); Absolute Neutrophil Count 1.08 10^3/uL (1.2-6.7); Basophils % 0.3 %; Eosinophils % 1.5 %; HCT 33.1 % (36.0-46.0); HGB 10.5 g/dL (11.2-15.7); Lymphocytes % 58.3 %; MCHC 31.7 % (32.0-36.0); MCV 88 fL (80-95); MPV 11.5 fL (8.0-11.0); Monocytes % 7.5 %; Neutrophils % 32.4 %; Platelet Count 270 10^3/uL (130-400); RBC 3.75 10^6/uL (3.93-5.22); RDW 15.9 % (11.7-14.6); RDW-SD 51.7 fL; WBC 3.33 10^3/uL (4.4-10.8)
[2023-10-18 12:46] LABS: Iron 45 ug/dL (50-170); Total Iron Binding Capacity 389 ug/dL (250-450); Transferrin Sat 12 % (15-50)
[2023-10-18 12:57] LABS: ALT 39 U/L (14-59); AST 31 U/L (15-37); Albumin 3.6 g/dL (3.4-5.0); Alkaline Phosphatase 76 U/L (46-116); Anion Gap 9.8 mmol/L (3-11); BUN 11 mg/dL (7-18); Bilirubin, Total 0.3 mg/dL (0.2-1.0); CO2 27.2 mmol/L (21.0-32.0); CREATININE 0.6 mg/dL (0.55-1.02); Calcium 9.1 mg/dL (8.5-10.1); Chloride 105 mmol/L (98-107); Estimated GFR 102.06 (mL/min/1.73m2); Ferritin 5 ng/mL (8-252); Glucose 88 mg/dL (74-106); Potassium 4.1 mmol/L (3.5-5.1); Sodium 142 mmol/L (136-145); T4 7.8 ug/dL (4.7-13.3); TSH 3.52 uIU/Ml (0.36-3.74); Total Protein 7.1 g/dL (6.4-8.2)
[2023-10-18 17:41] LABS: T3,Free 3.4 pg/mL (2.8-5.3)
[2023-10-19 10:04] LABS: Transferrin 301 mg/dL (201-352)
== END 2023-10-18 06:02 | disposition home or self-care (01) ==
LOC: LOS 06:01
PROVIDERS: PCP Family Medicine; Visit Provider Naturopath
DX: E03.8 Other specified hypothyroidism (principal); R74.8 Abnormal levels of other serum enzymes; D50.8 Other iron deficiency anemias
CPT/HCPCS: 36415; 80053; 82728; 83540; 83550; 83735; 84436; 84443; 84466; 84481; 85025

== ENCOUNTER 2023-10-29 17:35 | Outpatient (REF) | payer BC, SELFPAY ==
[2023-11-02 14:42] LABS: Helicobacter pylori Ag, Feces Negative (Negative)
== END 2023-10-29 17:36 | disposition home or self-care (01) ==
LOC: LBN 17:35
PROVIDERS: PCP Family Medicine; Visit Provider Naturopath
DX: A04.8 Other specified bacterial intestinal infections (principal)
CPT/HCPCS: 87338

== ENCOUNTER 2023-12-20 03:45 | Outpatient (CLI) | payer BC, SELFPAY ==
[2023-12-20 14:38] LABS: Abs Immature Grans 0.01 10^3/uL (0.0-0.06); Absolute Eosinophil Count 0.05 10^3/uL (0.0-0.7); Absolute Lymphocyte Count 1.64 10^3/uL (1.2-3.4); Absolute Monocyte Count 0.28 10^3/uL (0.1-0.8); Eosinophils % 1.5 %; HCT 35.2 % (36.0-46.0); HGB 11.3 g/dL (11.2-15.7); Immature Grans % 0.3 %; MCHC 32.1 % (32.0-36.0); MCV 90 fL (80-95); MPV 10.8 fL (8.0-11.0); Monocytes % 8.5 %; Neutrophils % 39.7 %; Platelet Count 236 10^3/uL (130-400); RDW 15.7 % (11.7-14.6); RDW-SD 51.8 fL; WBC 3.28 10^3/uL (4.4-10.8)
[2023-12-20 18:00] LABS: Ferritin 14 ng/mL (8-252)
[2023-12-21 09:26] LABS: Transferrin 288 mg/dL (201-352)
[2023-12-22 14:41] LABS: Iron 74 ug/dL (50-170)
== END 2023-12-20 03:46 | disposition home or self-care (01) ==
LOC: LBO 03:45
PROVIDERS: PCP Family Medicine; Visit Provider Naturopath
DX: D50.8 Other iron deficiency anemias (principal); E61.1 Iron deficiency
CPT/HCPCS: 36415; 82728; 83540; 84466; 85025

== ENCOUNTER 2024-02-10 02:34 | Emergency (ER) | payer BC, SELFPAY ==
[2024-02-10 02:37] VITALS: BP 93/61; PULSE 77; RESP 16; TEMP 36.2; O2SAT 98
--- NOTE | 2024-02-10 02:38 | ED.GENADUL_ITS ---
Discharge Plan Disposition Patient Disposition: Home Condition: Good Discharge Details Clinical Impression: Headache Primary Care Provider: Simba Holley ED Provider: Terrence Hairston Home Meds and New Rx's Prescriptions: Continued albuterol sulfate [ProAir HFA] 90 mcg/actuation HFA aerosol inhaler 2 puff inhalation Q6H PRN (Reason: shortness of breath or wheezing) Qty: 8.5 2RF Rx Instructions: Use for shortness of breath or wheezing in hot weather melatonin 3 MG tablet extended release 3 mg PO HS Qty: 90 coenzyme Q10 [Co Q-10] 10 MG capsule 10 mg PO as directed Rx Instructions: pt not sure of the strength 12/07/17 cgc turmeric (bulk) 1 GM powder 1 gm Miscellaneous DAILY vitamin b 12 IM .weekly Discharge Instructions Additional Instructions: You were seen for a headache. You will need to contact the physician that would be doing your procedure this morning so that they are aware you will not be undergoing the endoscopy. Since you are not finishing the bowel prep and not proceeding with endoscopy you may resume eating and drinking normally as well as taking your regular medications. Please follow-up with your primary care. Return to ED for severe worsening headache, neurologic change, syncope, other concerns. HPI General Mode of arrival: ambulatory . Date/Time Provider Initiated Documentation: 02/10/24 02:37 . Limitations to Documentation: no limitations . Information obtained by: patient and RN notes reviewed . HPI Narrative: Patient presents to ED with complaint of headache. Patient reports that she is supposed to be undergoing endoscopy this morning. She has taken about half of the bowel prep that she is supposed to. She reports that it is making her ill with nausea, 1 episode of vomiting and migraine headache. She did drink some turmeric tea and took 1 Tylenol. She denies having any type of neurologic change, chest pain, shortness of breath, abdominal pain. She does not think that she is going to be able to undergo the endoscopy and feels that she cannot finish the prep. Seems to be anxious. reporting increased anxiety as she continued to prep. Related Data Home Medications ?Medication ?Instructions ?Recorded ?Confirmed melatonin 3 mg tablet,extended 3 mg PO HS #90 tabs 04/24/15 02/10/24 release coenzyme Q10 10 mg capsule (Co 10 mg PO as directed 12/07/17 02/10/24 Q-10) turmeric (bulk) 100 % powder 1 gm miscellaneous DAILY 12/29/17 02/10/24 vitamin b 12 IM .weekly 03/08/19 10/02/22 albuterol sulfate 90 mcg/actuation 2 puff inhalation Q6H PRN 11/13/21 02/10/24 aerosol inhaler (ProAir HFA) shortness of breath or wheezing #8.5 grams Previous Rx's ?Medication ?Instructions ?Recorded albuterol sulfate 90 mcg/actuation 2 puff inhalation Q6H PRN 11/13/21 aerosol inhaler (ProAir HFA) shortness of breath or wheezing #8.5 grams Allergies Allergy/AdvReac Type Severity Reaction Status Date / Time venlafaxine Allergy Mild MILD Verified 02/10/24 02:49 ITCHING nitrofurazone Allergy Unknown Unknown Verified 02/10/24 02:49 sertraline Allergy Unknown unknown Verified 02/10/24 02:49 Sulfa (Sulfonamide AdvReac HEADACHES Verified 02/10/24 02:49 Antibiotics) General RICH: 5 Review of Systems Narrative: Per HPI Exam Narrative Exam Narrative: Const: WDWN female in NAD. VS per triage. HEENT: NC/AT. Normal facial exam. Neck: Supple. Trachea midline. Lungs: Normal respiratory effort. Lungs are clear. Cor: RRR without murmur. Good radial pulses. GI: Soft/ND Neuro: A+O x 3. Normal speech, mentation, gait. Cranial nerves II - XII grossly intact. No gross motor or sensory deficit. Medical Decision Making Patient presenting to ED with headache that she claims is similar to previous migraines. Feels that this is being brought on by the bowel prep that she is taken for endoscopy later this morning. At this point, does not feel that she can finish the prep. Did not really take anything for headache at home because the instructions were not to take anything by mouth. However, patient has decided she will not be going through with finishing the prep or the endoscopy. She is neurologically intact. Blood pressure is a little low but she is a small lady and is not tachycardic. Discussed options and patient has opted for IM injection of ketorolac for her headache. She will need to contact the physician that is supposed to be doing her endoscopy and let them know that she will not be doing so. She can follow-up with her primary care physician. Return preca utions provided. PFSH All Active Problems (Updated 02/10/24 @ 03:22 by Terrence Hairston MD) Headache (Acute) Toe pain, left (Acute) Antibiotic drug intolerance (Acute) Ingrowing nail (Acute) Foot pain (Acute) Anemia (Chronic) Hx anemia, with improvement since summer 2017 2' diet/suppl. Feb 2018, baseline. Monitor q3mos as leukopenia is also issue. Dr. Dillon-goal Iron Saturation 30-50%, Ferritin about 50 per note 06/07/19 Iron deficiency anemia due to dietary causes (Acute) 08/2020 [facility] Hem/Onc (Hx Iron Def, 2014) Chronic leukopenia (Acute 05/21/14) Acute decrease of WBC with Hx chronic leukopenia .. 2.68 (02/07/18) vs 3.39 (October 2017). [ ] Hem ref. Chronic leukopenia (Acute) Reviewed by Dr. Clair Daniels Ear congestion (Acute) requesting ENT Feeling worried (Acute) Elevated TSH (Acute) Anxiety (Acute 11/08/14) Migraine (Acute) GERD (gastroesophageal reflux disease) (Chronic) Improved with diet. Poor tolerance of PPI. Bursitis of left shoulder (Acute) Right carpal tunnel syndrome (Acute) Sleeping difficulty (Acute 04/24/15) Ambar-menopause (Acute 05/16/15) Melasma (Acute) Hot flashes (Acute 04/24/15) Medical History Abnormal auditory perception of both ears Foreign body in ear, bilateral Anemia due to vitamin B12 deficiency B12 WNL, High .. 2020, 2021 Tick bite Dysfunctional uterine bleeding (04/29/12) Bites (06/2018) Unclear scabies? fleas? Hx of this occurred years ago (?)(3 yrs ago) Generalized pruritus (06/2018) Specific bite sites, but unclear whether bite or reaction to bite is what we're seeing and what is itching. Several sites of scratched off previous bite site. H/O anorexia nervosa Ambar-menopause (05/17/15) Missed 2mo of menses. Occassional VMS. Surgical History Status post ovarian cystectomy History of exploratory laparotomy Status post dilation and curettage Laparotomy RLQ pain, normal findings Dilation and curettage SAB Cystectomy, Mini Lap Ovarian 05/23/10; AGE 16 Family History Mother Personal history of malignant neoplasm Uterine CA Father , heart prob. at age 76. Heart disease PACEMAKER Stroke Sister No problems noted. Sister No problems noted. Brother No problems noted. Brother No problems noted. Brother Personal history of malignant neoplasm BRAIN TUMOR Social History Smoking/Tobacco Use Status: Never Smoking risk assessment performed?: Yes Alcohol Intake: never Drug use: Never Substance use type: does not use Housing: house Current gender identity: female What type of physical activity do you participate in: other Details: hiking
== END 2024-02-10 03:56 | disposition home or self-care (01) ==
PROVIDERS: Emergency Provider Emergency Medicine; PCP Family Medicine
DX: R51.9 Headache, unspecified (principal); F41.9 Anxiety disorder, unspecified
CPT/HCPCS: 99283

== ENCOUNTER 2024-08-18 00:12 | Outpatient (CLI) | payer BC, SELFPAY ==
--- NOTE | 2024-08-18 | DI.MRI_ITS ---
Exam(s) MR ABDOMEN WO EXAM: MR ABDOMEN WO CLINICAL HISTORY: R10.9 Abd Pain, recurrent TECHNIQUE: Multiplanar multisequence MRI of the Abdomen was performed. MRCP sequences also performed. MRCP sequence also performed. COMPARISON: US US ABDOMEN from 03/20/2024 FINDINGS: Liver: Unremarkable. Gallbladder: Unremarkable. Bile Ducts: Unremarkable. Pancreas: Unremarkable. Adrenals: Unremarkable. Kidneys: Unremarkable. Spleen: Unremarkable. Aorta: Unremarkable. Soft Tissues: Unremarkable. Bone: Unremarkable. Lymph Nodes: Unremarkable. Mesentery: No ascites. No focal fluid collection. Bowel: No abnormal dilatation. Large quantity of stool noted throughout the visualized portions of t he colon. IMPRESSION: Large quantity of stool noted in visualized portions of the colon. No biliary dilatation or other acute abnormality. DATA REPOSITORY:
== END 2024-08-18 00:32 ==
LOC: DI 00:12
PROVIDERS: PCP Family Medicine; Visit Provider Family Medicine
DX: R10.9 Unspecified abdominal pain (principal); K59.00 Constipation, unspecified
CPT/HCPCS: 74181

== ENCOUNTER 2024-09-27 11:34 | Observation (INO) | payer BC, SELFPAY ==
[2024-09-27] VITALS (67 sets, daily range): BP systolic 67–172; BP diastolic 51–101; PULSE 55–214; RESP 9–29; TEMP 35.5–37; O2SAT 92–100
--- NOTE | 2024-09-27 11:45 | RT.EKG_ITS ---
APPROVED REPORT Exam: Resting ECG Reason for Exam: Syncope Patient Location: E HR:186 bpm ECG Measurements Heart Rate 186 AXIS ID [id number] P 0 QRSd 74 QRS 146 QT 274 T 30 QTc 481 Conclusion Supraventricular tachycardia...V-rate>(220-age), QRSd<120 Right axis deviation...QRS axis ( 91,269)
[2024-09-27] MEDS: Adenosine 6 MG/2 ML VIAL ×2 (11:59→12:05)
--- NOTE | 2024-09-27 12:15 | ED.GENADUL_ITS ---
Discharge Plan Disposition Patient Disposition: Admit to [facility] Condition: Serious Discharge Details Chief Complaint: GenMedical Clinical Impression: SVT (supraventricular tachycardia), Chest pain, Abdominal pain, Elevated troponin Primary Care Provider: Simba Holley ED Provider: Tc Hernández Home Meds and New Rx's Prescriptions: No Action albuterol sulfate [ProAir HFA] 90 mcg/actuation HFA aerosol inhaler 2 puff inhalation Q6H PRN (Reason: shortness of breath or wheezing) Qty: 8.5 2RF Rx Instructions: Use for shortness of breath or wheezing in hot weather melatonin 3 MG tablet extended release 3 mg PO HS Qty: 90 coenzyme Q10 [Co Q-10] 10 MG capsule 10 mg PO as directed Rx Instructions: pt not sure of the strength 12/07/17 cgc turmeric (bulk) 1 GM powder 1 gm Miscellaneous DAILY vitamin b 12 IM .weekly HPI General Date/Time Provider Initiated Documentation: 09/27/24 11:50 . Limitations to Documentation: altered mental status . Information obtained by: patient and family . HPI Narrative: 64-year-old female presents after syncopal episode around 1050 today. Patient notes feeling of palpitations and chest discomfort. Patient with altered mental status on arrival. History and review of systems limited due to acuity of condition and altered mental status. Related Data Home Medications ?Medication ?Instructions ?Recorded ?Confirmed melatonin 3 mg tablet,extended 3 mg PO HS #90 tabs 04/24/15 02/10/24 release coenzyme Q10 10 mg capsule (Co 10 mg PO as directed 12/07/17 02/10/24 Q-10) turmeric (bulk) 100 % powder 1 gm miscellaneous DAILY 12/29/17 02/10/24 vitamin b 12 IM .weekly 03/08/19 10/02/22 albuterol sulfate 90 mcg/actuation 2 puff inhalation Q6H PRN 11/13/21 02/10/24 aerosol inhaler (ProAir HFA) shortness of breath or wheezing #8.5 grams Previous Rx's ?Medication ?Instructions ?Recorded albuterol sulfate 90 mcg/actuation 2 puff inhalation Q6H PRN 11/13/21 aerosol inhaler (ProAir HFA) shortness of breath or wheezing #8.5 grams Allergies Allergy/AdvReac Type Severity Reaction Status Date / Time venlafaxine Allergy Mild MILD Verified 02/10/24 02:49 ITCHING nitrofurazone Allergy Unknown Unknown Verified 02/10/24 02:49 sertraline Allergy Unknown unknown Verified 02/10/24 02:49 Sulfa (Sulfonamide AdvReac HEADACHES Verified 02/10/24 02:49 Antibiotics) General Stated Complaint: GenMedical RICH: 2 Review of Systems Constitutional Constitutional: Denies fever(s) Cardiovascular Cardiovascular: Reports chest pain, Reports rapid heart rate and Reports dyspnea Respiratory Respiratory: Reports dyspnea Gastrointestinal Gastrointestinal: Reports abdominal pain Psychiatric Psychiatric: Reports anxiety Exam Const General: not healthy appearing and diaphoretic Nutritional Appearance: thin Orientation: awake and confused HENMT Head: normocephalic and atraumatic Mouth: moist mucous membranes Eyes Conjunctivae: normal conjunctivae Sclera: normal sclerae EOM: EOM intact bilaterally Neck Neck: trachea midline and supple Thyroid: thyroid normal Resp Auscultation: clear to auscultation bilaterally, no rales, no rhonchi and no wheezes Cardio Jugular venous pressure: no JVD Rate: tachycardic Rhythm: regular rhythm GI Palpation: soft, not firm, no guarding, no masses, not rigid and tender in the RUQ Skin General skin exam: no rashes or lesions noted Neuro General: patient awake and tone normal Cognition: abnormal cognition Extrem General: no calf tenderness and no edema Course Vital Signs Vital signs: Vital Signs Pulse 182 H 09/27/24 11:43 Respiratory Rate 18 09/27/24 11:43 Blood Pressure 67/51 L 09/27/24 11:43 Pulse Oximetry 99 09/27/24 11:43 Pulse 182 H 09/27/24 11:43 Respiratory Rate 18 09/27/24 11:43 Blood Pressure 67/51 L 09/27/24 11:43 Blood Pressure Position Supine 09/27/24 11:43 Pulse Oximetry 99 09/27/24 11:43 Oxygen Delivery Method Room Air 09/27/24 11:43 Oxygen Flow Rate 0 09/27/24 11:43 Pain Level 6 09/27/24 11:43 Medical Decision Making 1215 --64-year-old female with multiple medical problems listed including chronic leukopenia, iron deficiency anemia, elevated TSH noted in the past, here with chest pain and syncope. Patient tachycardic and hypotensive on arrival. EKG was reviewed and interpreted by me: Please report, supraventricular tachycardia 186 bpm with right axis deviation and ST depression likely rate related. Initial concern for supraventricular tachycardia. Patient not able to participate in vagal maneuvers. Patient was given adenosine 6 mg left AC with no effect. A second 6 mg dose was administered right AC with no effect. phototypesetting equipment monitor revealed continued narrow complex regular tachycardia in the 180s. Patient was hypotensive and unable to obtain blood pressure manually. Patient complained of dizziness. Decision to proceed emergent cardioversion. Attempted synchronized cardioversion at 120 J. No effect on heart rate or rhythm. Patient remains tachycardic. Now with improved mentation and blood pressure 94/72. Patient in pain after cardioversion. I will give fentanyl 50 mcg. Administering IV fluid bolus. Unclear etiology for refractory tachycardia. Plan to assess for electrolyte abnormalities and hyperthyroidism. Consider acute life threatening PE vs dissection. Plan to obtain CT imaging. 1238 -- Patient was given Versed 2 mg for anxiety. A third attempt at chemical cardioversion was performed with adenosine 12 mg and patient spontaneously converted to sinus rhythm. 1445 --CT of the chest interpreted by radiology: 1. No evidence of a pulmonary embolism or thoracic aortic aneurysm. 2. No acute pulmonary process. Labs reviewed: Delta troponin at 1 hour has increased. Patient reassessed and she has no chest pain. She does note some right upper quadrant abdominal pain that is worse after eating over the past 1 to 2 weeks. --[id number] ultrasound of the abdomen performed by me: Limited exam and unable to visualize gallbladder. Morison's pouch negative for fluid. LFTs normal. 1550 --repeat 3-hour troponin significantly elevated at now 448. I suspect this is secondary to cardioversion but given original chest pain, consider ACS. Plan to continue to monitor and trend troponin. Case was presented to the hospitalist who will admit for observation. Patient was reassessed and mentating well, hemodynamically stable. Lab Data Lab results reviewed: Yes I reviewed the patient's lab results. Labs: Laboratory Tests Range/Units 09/27/24 09/27/24 09/27/24 11:53 12:55 15:10 WBC (4.4-10.8) 10^3/uL 3.37 L RBC (3.93-5.22) 10^6/uL 4.37 Hgb (11.2-15.7) g/dL 12.8 Hct (36.0-46.0) % 38.9 MCV (80-95) fL 89 MCH (27.0-33.0) pg 29.3 MCHC (32.0-36.0) % 32.9 RDW (11.7-14.6) % 15.0 H Plt Count (130-400) 10^3/uL 300 MPV (8.0-11.0) fL 11.6 H Immature Gran % % 0.0 Neutrophils % % 20.5 Lymphocytes % % 73.3 Monocytes % % 4.7 Eosinophils % % 1.2 Basophils % % 0.3 Nucleated RBC % (0.0-0.3) % 0.0 Absolute Neutrophils (1.2-6.7) 10^3/uL 0.69 L Absolute Lymphocytes (1.2-3.4) 10^3/uL 2.47 Absolute Monocytes (0.1-0.8) 10^3/uL 0.16 Absolute Eosinophils (0.0-0.7) 10^3/uL 0.04 Absolute Basophils (0.0-0.2) 10^3/uL 0.01 RBC Morphology Normal Sodium (136-145) mmol/L 142 Potassium (3.5-5.1) mmol/L 3.8 Chloride (98-107) mmol/L 106 Carbon Dioxide (21.0-32.0) mmol/L 23.7 Anion Gap (3-11) mmol/L 12.3 H BUN (7-18) mg/dL 7 Creatinine (0.55-1.02) mg/dL 1.0 Est GFR (CKD-EPI 2020) (mL/min/1.73m2) 63.70 Glucose (74-106) mg/dL 121 H Calcium (8.5-10.1) mg/dL 9.6 Magnesium (1.8-2.4) mg/dL 1.8 Total Bilirubin (0.2-1.0) mg/dL 0.4 AST (15-37) U/L 26 ALT (14-59) U/L 25 Alkaline Phosphatase (46-116) U/L 73 Troponin I (<or=51) ng/L 13 52 H* 448 H* Total Protein (6.4-8.2) g/dL 7.3 Albumin (3.4-5.0) g/dL 4.1 TSH (0.36-3.74) uIU/mL 6.33 H Free T4 (0.76-1.46) ng/dL 1.05 Quality:SDOH Health Related Social Needs: No Data to Display Critical Care Time Critical Care Time Critical Care Time: Yes Total Critical Care Time: 50 Attestation: Due to a high probability of clinically significant, life threatening deterioration, the patient required my highest level of preparedness to intervene emergently and I personally spent this critical care time directly and personally managing the patient. This critical care time included obtaining a history; examining the patient; pulse oximetry; ordering and review of studies; arranging urgent treatment with development of a management plan; evaluation of patient's response to treatment; frequent reassessment; and, discussions with other providers. This critical care time was performed to assess and manage the high probability of imminent, life-threatening deterioration that could result in multi-organ failure. It was exclusive of separately billable procedures and treating other patients and teaching time. Please see MDM section and the rest of the note for further information on patient assessment and treatment. PFSH All Active Problems (Updated 09/27/24 @ 16:16 by Tc Hernández MD) Elevated troponin (Acute) Abdominal pain (Acute) Chest pain (Acute) SVT (supraventricular tachycardia) (Chronic) Toe pain, left (Acute) Antibiotic drug intolerance (Acute) Ingrowing nail (Acute) Foot pain (Acute) Anemia (Chronic) Hx anemia, with improvement since summer 2017 2' diet/suppl. Feb 2018, baseline. Monitor q3mos as leukopenia is also issue. Dr. Dillon-goal Iron Saturation 30-50%, Ferritin about 50 per note 06/07/19 Iron deficiency anemia due to dietary causes (Acute) 08/2020 [facility] Hem/Onc (Hx Iron Def, 2015) Chronic leukopenia (Acute 05/21/14) Acute decrease of WBC with Hx chronic leukopenia .. 2.68 (02/07/18) vs 3.39 (October 2017). [ ] Hem ref. Chronic leukopenia (Acute) Reviewed by Dr. Clair Daniels Ear congestion (Acute) requesting ENT Feeling worried (Acute) Elevated TSH (Acute) Anxiety (Acute 11/08/14) Migraine (Acute) GERD (gastroesophageal reflux disease) (Chronic) Improved with diet. Poor tolerance of PPI. Bursitis of left shoulder (Acute) Right carpal tunnel syndrome (Acute) Sleeping difficulty (Acute 04/24/15) Ambar-menopause (Acute 05/16/15) Melasma (Acute) Hot flashes (Acute 04/24/15) Medical History Abnormal auditory perception of both ears Foreign body in ear, bilateral Anemia due to vitamin B12 deficiency B12 WNL, High .. 2020, 2021 Tick bite Dysfunctional uterine bleeding (04/29/12) Bites (06/2018) Unclear scabies? fleas? Hx of this occurred years ago (?)(3 yrs ago) Generalized pruritus (06/2018) Specific bite sites, but unclear whether bite or reaction to bite is what we're seeing and what is itching. Several sites of scratched off previous bite site. H/O anorexia nervosa Ambar-menopause (05/17/15) Missed 2mo of menses. Occassional VMS. Surgical History Status post ovarian cystectomy History of exploratory laparotomy Status post dilation and curettage Laparotomy RLQ pain, normal findings Dilation and curettage SAB Cystectomy, Mini Lap Ovarian 05/23/10; AGE 16 Family History Mother Personal history of malignant neoplasm Uterine CA Father , heart prob. at age 76. Heart disease PACEMAKER Stroke Sister No problems noted. Sister No problems noted. Brother No problems noted. Brother No problems noted. Brother Personal history of malignant neoplasm BRAIN TUMOR Social History Smoking/Tobacco Use Status: Never Smoking risk assessment performed?: Yes Alcohol Intake: never Drug use: Never Substance use type: does not use Housing: house Current gender identity: female What type of physical activity do you participate in: other Details: hiking Do you feel safe at home: Yes Do you feel safe in your relationship?: Yes
--- NOTE | 2024-09-27 12:15 | DI.CT_ITS ---
Exam(s) CT CHEST PE CTA EXAM: CT CHEST PE CTA CLINICAL HISTORY: chest pain, tachycardia, hypotension. TECHNIQUE: Imaging Protocol: Axial CT angiography was performed with multi-slice acquisition and mu lti-planar and/or 3D reconstructions. Lung Computer Aided Detection (CAD) was utilized. CONTRAST MATERIAL: Intravenous: Omnipaque 350 contrast volume:70 mL COMPARISON: CT CERVICAL SPINE WITHOUT CONTRA from 02/28/2009 CR CHEST 2 VIEWS PA,LAT from 02/21/2013 FINDINGS: Tracheobronchial tree: Patent where visualized. No bronchiectasis. Pulmonary parenchyma: No consolidation or dominant measurable mass. No architectural distortion. Pulmonary Arteries: No evidence of filling defect to suggest pulmonary emboli. Mediastinum and Pinky: No dominant adenopathy or fluid collection. The esophagus is unremarkable. Th ere is a small hiatal hernia. Visualized thyroid gland: Unremarkable. Pleura: No effusion or pneumothorax. Heart: The heart is not dilated. No coronary artery calcifications are seen. No pericardial effusion. Aorta: Thoracic aorta non-dilated. Minimal atherosclerosis is present. Upper abdomen: Unremarkable. Soft tissues: Unremarkable. Bones: Within normal limits for the patient's age. IMPRESSION: 1. No evidence of a pulmonary embolism or thoracic aortic aneurysm. 2. No acute pulmonary process. RADIATION DOSE DELIVERED: 52.95mGy.cm Total DLP DATA REPOSITORY: All CT scans at this facility are submitted to the National Radiology Data Registry (NRDR) Dose Index Registry (DIR) with the [employer] ([employer]). RADIATION OPTIMIZATION: All CT scans at this facility use at least one of these dose optimization te chniques: automated exposure control; mA and/or kV adjustment per patient size (includes targeted exa ms where dose is matched to clinical indication); or iterative reconstruction.
[2024-09-27] MEDS: fentaNYL 100 MCG/2 ML VIAL 50 MCG IVP (12:18)
[2024-09-27 12:29] LABS: Absolute Basophil Count 0.01 10^3/uL (0.0-0.2); Absolute Eosinophil Count 0.04 10^3/uL (0.0-0.7); Absolute Lymphocyte Count 2.47 10^3/uL (1.2-3.4); Absolute Monocyte Count 0.16 10^3/uL (0.1-0.8); Absolute Neutrophil Count 0.69 10^3/uL (1.2-6.7); Basophils % 0.3 %; Eosinophils % 1.2 %; HCT 38.9 % (36.0-46.0); HGB 12.8 g/dL (11.2-15.7); Lymphocytes % 73.3 %; MCH 29.3 pg (27.0-33.0); MCHC 32.9 % (32.0-36.0); MCV 89 fL (80-95); MPV 11.6 fL (8.0-11.0); Monocytes % 4.7 %; Neutrophils % 20.5 %; Platelet Count 300 10^3/uL (130-400); RBC 4.37 10^6/uL (3.93-5.22); RDW-SD 49.4 fL; WBC 3.37 10^3/uL (4.4-10.8)
--- NOTE | 2024-09-27 12:30 | RT.EKG_ITS ---
APPROVED REPORT Exam: Resting ECG Reason for Exam: Syncopy Patient Location: E HR:77 bpm ECG Measurements Heart Rate 77 AXIS CO 153 P 65 QRSd 88 QRS 32 QT 384 T 61 QTc 435 Conclusion Sinus rhythm...normal P axis, V-rate 60- 99 Low voltage, precordial leads...precordial leads <1.0mV
[2024-09-27] MEDS: Midazolam 2 MG/2 ML VIAL IVP (12:33)
[2024-09-27] MEDS: Adenosine 6 MG/2 ML VIAL 12 MG IVP (12:35)
[2024-09-27 12:57] LABS: ALT 25 U/L (14-59); AST 26 U/L (15-37); Albumin 4.1 g/dL (3.4-5.0); Alkaline Phosphatase 73 U/L (46-116); Anion Gap 12.3 mmol/L (3-11); BUN 7 mg/dL (7-18); Bilirubin, Total 0.4 mg/dL (0.2-1.0); CO2 23.7 mmol/L (21.0-32.0); Calcium 9.6 mg/dL (8.5-10.1); Chloride 106 mmol/L (98-107); Glucose 121 mg/dL (74-106); Magnesium 1.8 mg/dL (1.8-2.4); Potassium 3.8 mmol/L (3.5-5.1); Sodium 142 mmol/L (136-145); TSH (W/Ref FT4) 6.33 uIU/mL (0.36-3.74); Total Protein 7.3 g/dL (6.4-8.2); Troponin I 13 ng/L (<or=51)
[2024-09-27 13:00] LABS: Diff Comment Diff Reviewed; RBC Morphology Normal
[2024-09-27 13:22] LABS: Troponin I 52 ng/L (<or=51)
[2024-09-27] MEDS: Normal Saline - Diluent 50 ML VIAL IJ (13:25)
[2024-09-27] MEDS: Omnipaque 350 MG/ML 100 ML BTL 70 ML IJ (13:26)
[2024-09-27 14:01] LABS: FREE T4 1.05 ng/dL (0.76-1.46)
[2024-09-27 15:38] LABS: Troponin I 448 ng/L (<or=51)
--- NOTE | 2024-09-27 18:21 | HPE_ITS ---
Date of service: 09/27/24 Time of Service: 17:00 Assessment and Plan Assessment and plan (1) SVT (supraventricular tachycardia): Status: Chronic Assessment and plan: Assessment: The patient presented with SVT (tachycardia at 186 bpm), and despite initial attempts at vagal maneuvers and adenosine administration, the SVT persisted. Emergent synchronized cardioversion was performed without success, but the patient's altered mental status improved post-procedure. Elevated troponin levels were noted, potentially related to the cardioversion, but ACS remains a consideration due to the initial chest pain and elevated troponin. * Plan: * Continue monitoring: Troponin levels to evaluate for acute coronary syndrome vs. cardioversion-induced troponin rise. TSH 6.33 * Electrolyte abnormalities: Check and correct any electrolyte imbalances that may contribute to the SVT (e.g., hypokalemia, hypomagnesemia). * Cardiac monitoring: Ongoing continuous cardiac monitoring to track the heart rate and rhythm. If tachycardia persists, further interventions (e.g., amiodarone, additional cardioversion) may be required. * Consider follow-up imaging: Repeat echocardiogram or other diagnostic studies to assess for structural heart disease or possible underlying causes of SVT. * Consult cardiology: For further management and assessment of SVT, especially in light of the patient's ongoing symptoms. (2) Elevated troponin: Status: Acute Assessment and plan: Assessment: Troponin levels have risen (13 ng.L, 52 ng/L to 448 ng/L), which may indicate myocardial injury. The elevated levels could be related to the cardioversion, but ACS cannot be ruled out given the patient's clinical presentation of chest pain. Plan: * Repeat troponin levels every 3 hours to assess the trend. (1829 and 2129- night hospitalist to trend and order accordingly) * Cardiology evaluation to evaluate for potential ACS or other causes of myocardial injury. * Supportive care with fluid resuscitation as needed, pain control, and monitoring for any signs of myocardial ischemia. (3) Chest pain: Status: Acute Assessment and plan: Assessment: The patient's chest pain, initially concerning for ACS, is now considered secondary to the SVT episode. Despite normal CT imaging of the chest, the elevated troponin levels warrant ongoing observation and monitoring for ACS. Plan: * Continued monitoring of chest pain and vital signs. * Ongoing troponin surveillance every 3 hours until levels plateau or show a clear downward trend. (1830 and 2130; night hospitalist to trend and order accordingly) * Cardiology consult for further assessment of potential ischemia or ACS. History of Present Illness History of Present Illness Chief Complaint: Syncope, palpitations, chestp pain Narrative: This is a 64-year-old female who presented to the [facility] ED following a syncopal episode at approximately 10:50 AM on 09/27/24. The patient reported experiencing palpitations and chest discomfort prior to the event. Upon arrival to the ED, she exhibited altered mental status, which limited the history and review of systems due to the acute nature of her condition. A detailed history was obtained from the patient and family. Clinical Course: * The patient is known to have a history of supraventricular tachycardia, anxiety, and chronic leukopenia, with the additional risk factors of a previous uterine cancer diagnosis (mother's history) and family history of heart disease and malignancy. * On presentation, the patient was tachycardic, with a heart rate of 182 beats per minute, and hypotensive with a blood pressure of 67/51 mmHg. She complained of dizziness and chest pain, as well as abdominal pain in the right upper quadrant that had worsened over the past 1-2 weeks. * Electrocardiogram indicated SVT with a heart rate of 186 bpm, right axis deviation, and ST depression, which appeared to be rate-related. * Initial attempts to manage the SVT with vagal maneuvers were unsuccessful, and adenosine was administered in two doses (6 mg left AC, 6 mg right AC) without effect. This was followed by emergent synchronized cardioversion at 120 J, which also had no effect. * The patient?s altered mental status improved following cardioversion, and her blood pressure improved to 94/72 mmHg. However, she continued to experience tachycardia and chest pain. A fentanyl dose was administered for pain management, and an IV fluid bolus was given to improve her hemodynamics. * Given the elevated troponin levels, the possibility of acute coronary syndrome was considered. A CT scan of the chest ruled out pulmonary embolism and thoracic aortic aneurysm, while further lab results suggested a possible cardioversion-related elevation in troponin. * A [id number] ultrasound of the abdomen was conducted, which was limited but revealed no gallbladder visualization and no fluid in the Morison?s pouch. Liver function tests were normal. * Troponin levels continued to rise, reaching 448 at 3 hours, further suggesting ACS as a potential cause of the patient's chest pain. The hospitalist team was consulted, and the decision was made to admit the patient for observation on the medical floor due to the serious nature of her clinical presentation. Disposition and Plan: * Disposition: Patient was admitted to the medical floor for observation status. * Condition: Serious * Plan: * Continue to monitor troponin levels. * Rule out ACS vs. potential cardioversion-related troponin elevation. * Monitor for electrolyte imbalances and thyroid dysfunction * Continue supportive care with fluid resuscitation as needed. * Pain management and reassessment of abdominal pain (consider potential gallbladder pathology). Review of Systems All systems reviewed & are unremarkable except as noted in HPI and below PFSH All Active Problems (Updated 09/27/24 @ 17:38 by RODRIGO SCHNEIDER) Elevated troponin (Acute) Abdominal pain (Acute) Chest pain (Acute) SVT (supraventricular tachycardia) (Chronic) Toe pain, left (Acute) Antibiotic drug intolerance (Acute) Ingrowing nail (Acute) Foot pain (Acute) Anemia (Chronic) Hx anemia, with improvement since summer 2017 2' diet/suppl. Feb 2018, baseline. Monitor q3mos as leukopenia is also issue. Dr. Dillon-goal Iron Saturation 30-50%, Ferritin about 50 per note 06/07/19 Iron deficiency anemia due to dietary causes (Acute) 08/2020 [facility] [place] Hem/Onc (Hx Iron Def, 2014) Chronic leukopenia (Acute 05/21/14) Acute decrease of WBC with Hx chronic leukopenia .. 2.68 (02/07/18) vs 3.39 (October 2017). [ ] Hem ref. Chronic leukopenia (Acute) Reviewed by Dr. Clair Daniels Ear congestion (Acute) requesting ENT Feeling worried (Acute) Elevated TSH (Acute) Anxiety (Acute 11/08/14) Migraine (Acute) GERD (gastroesophageal reflux disease) (Chronic) Improved with diet. Poor tolerance of PPI. Bursitis of left shoulder (Acute) Right carpal tunnel syndrome (Acute) Sleeping difficulty (Acute 04/24/15) Ambar-menopause (Acute 05/16/15) Melasma (Acute) Hot flashes (Acute 04/24/15) Medical History Abnormal auditory perception of both ears Foreign body in ear, bilateral Anemia due to vitamin B12 deficiency B12 WNL, High .. [id number] Tick bite Dysfunctional uterine bleeding (04/29/12) Bites (06/2018) Unclear scabies? fleas? Hx of this occurred years ago (?)(3 yrs ago) Generalized pruritus (06/2018) Specific bite sites, but unclear whether bite or reaction to bite is what we're seeing and what is itching. Several sites of scratched off previous bite site. H/O anorexia nervosa Ambar-menopause (05/17/15) Missed 2mo of menses. Occassional VMS. Surgical History Status post ovarian cystectomy History of exploratory laparotomy Status post dilation and curettage Laparotomy RLQ pain, normal findings Dilation and curettage SAB Cystectomy, Mini Lap Ovarian 05/23/10; AGE 16 Family History Mother Personal history of malignant neoplasm Uterine CA Father , heart prob. at age 76. Heart disease PACEMAKER Stroke Sister No problems noted. Sister No problems noted. Brother No problems noted. Brother No problems noted. Brother Personal history of malignant neoplasm BRAIN TUMOR Social History Smoking/Tobacco Use Status: Never Smoking risk assessment performed?: Yes Alcohol Intake: never Drug use: Never Substance use type: does not use Housing: house Current gender identity: female What type of physical activity do you participate in: other Details: hiking Do you feel safe at home: Yes Do you feel safe in your relationship?: Yes Meds Allergies and Home Medications Allergies Allergy/AdvReac Type Severity Reaction Status Date / Time venlafaxine Allergy Mild MILD Verified 02/10/24 02:49 ITCHING nitrofurazone Allergy Unknown Unknown Verified 02/10/24 02:49 sertraline Allergy Unknown unknown Verified 02/10/24 02:49 Sulfa (Sulfonamide AdvReac HEADACHES Verified 02/10/24 02:49 Antibiotics) Home Medications ?Medication ?Instructions ?Recorded ?Confirmed ?Type melatonin 3 mg tablet,extended 3 mg PO HS #90 tabs 04/24/15 09/27/24 History release coenzyme Q10 10 mg capsule (Co 10 mg PO as directed 12/07/17 09/27/24 History Q-10) turmeric (bulk) 100 % powder 1 gm miscellaneous DAILY 12/29/17 09/27/24 History vitamin b 12 IM .weekly 03/08/19 10/02/22 History albuterol sulfate 90 mcg/actuation 2 puff inhalation Q6H PRN 11/13/21 09/27/24 Rx aerosol inhaler (ProAir HFA) shortness of breath or wheezing #8.5 grams Exam Const Nutritional Appearance: thin Orientation: awake HENPR Head: normocephalic and atraumatic Mouth: moist mucous membranes Eyes Conjunctivae: normal conjunctivae Sclera: normal sclerae EOM: EOM intact bilaterally Neck Neck: trachea midline and supple Thyroid: thyroid normal Resp Auscultation: clear to auscultation bilaterally, no rales, no rhonchi and no wheezes Cardio Jugular venous pressure: no JVD Rate: regular rate Rhythm: regular rhythm GI Palpation: soft, not firm, no guarding, no masses, not rigid and tender in the RUQ Skin General skin exam: no rashes or lesions noted Neuro General: patient awake and tone normal Cognition: abnormal cognition Extrem General: no calf tenderness and no edema Results Labs 09/27/24 11:53 09/27/24 11:53 Labs: Laboratory Results - last 24 hr 09/27/24 09/27/24 09/27/24 11:53 12:55 15:10 WBC 3.37 L RBC 4.37 Hgb 12.8 Hct 38.9 MCV 89 MCH 29.3 MCHC 32.9 RDW 15.0 H Plt Count 300 MPV 11.6 H Immature Gran % 0.0 Neutrophils % 20.5 Lymphocytes % 73.3 Monocytes % 4.7 Eosinophils % 1.2 Basophils % 0.3 Nucleated RBC % 0.0 Absolute Neutrophils 0.69 L Absolute Lymphocytes 2.47 Absolute Monocytes 0.16 Absolute Eosinophils 0.04 Absolute Basophils 0.01 RBC Morphology Normal Sodium 142 Potassium 3.8 Chloride 106 Carbon Dioxide 23.7 Anion Gap 12.3 H BUN 7 Creatinine 1.0 Est GFR (CKD-EPI 2020) 63.70 Glucose 121 H Calcium 9.6 Magnesium 1.8 Total Bilirubin 0.4 AST 26 ALT 25 Alkaline Phosphatase 73 Troponin I 13 52 H* 448 H* Total Protein 7.3 Albumin 4.1 TSH 6.33 H Free T4 1.05 Last Vital Signs Temp 35.5 C L 09/27/24 17:38 Pulse 71 09/27/24 17:38 Resp 16 09/27/24 17:38 BP 124/71 09/27/24 17:38 Pulse Ox 99 09/27/24 17:38 Time Spent Time spent with Patient: 40-54 minutes Time was spent: preparing to see the patient(eg.review tests), obtaining and/or reviewing separately otained hiistory, ordering medications,tests, procedures, referring, communicating with other health customer care voice consultant, indepentently interpreting results, counseling the patient and care coordination
[2024-09-27 19:18] LABS: Troponin I 1438 ng/L (<or=51)
[2024-09-27] MEDS: Melatonin 3 MG TAB 9 MG PO (20:13)
[2024-09-27] MEDS: Normal Saline Flush 10 ML SYR IVP (20:14)
[2024-09-27 20:40] LABS: Troponin I 1563 ng/L (<or=51)
[2024-09-28 00:20] LABS: Troponin I 1540 ng/L (<or=51)
[2024-09-28] MEDS: traZODone 50 MG TAB PO (00:42)
[2024-09-28 06:53] LABS: Abs Immature Grans 0.01 10^3/uL (0.0-0.06); Absolute Basophil Count 0.01 10^3/uL (0.0-0.2); Absolute Eosinophil Count 0.04 10^3/uL (0.0-0.7); Absolute Monocyte Count 0.22 10^3/uL (0.1-0.8); Absolute Neutrophil Count 1.05 10^3/uL (1.2-6.7); Basophils % 0.3 %; Eosinophils % 1.3 %; HCT 33.3 % (36.0-46.0); Immature Grans % 0.3 %; Lymphocytes % 56.1 %; MCH 29.3 pg (27.0-33.0); MCV 89 fL (80-95); MPV 11.2 fL (8.0-11.0); Monocytes % 7.3 %; Neutrophils % 34.7 %; Platelet Count 200 10^3/uL (130-400); RBC 3.76 10^6/uL (3.93-5.22); RDW-SD 48.3 fL; WBC 3.03 10^3/uL (4.4-10.8)
[2024-09-28 07:17] LABS: Anion Gap 9.9 mmol/L (3-11); BUN 7 mg/dL (7-18); CO2 25.1 mmol/L (21.0-32.0); CREATININE 0.7 mg/dL (0.55-1.02); Calcium 9.1 mg/dL (8.5-10.1); Chloride 108 mmol/L (98-107); Estimated GFR 97.72 (mL/min/1.73m2); Glucose 82 mg/dL (74-106); Magnesium 1.8 mg/dL (1.8-2.4); Sodium 143 mmol/L (136-145)
[2024-09-28 07:47] VITALS: BP 105/66; PULSE 58; RESP 16; TEMP 36; O2SAT 98
[2024-09-28] MEDS: Normal Saline Flush 10 ML SYR IVP (08:37)
--- NOTE | 2024-09-28 08:46 | PDOC.CMIN ---
Date of service: 09/28/24 Time of Service: 08:46 Care Management Initial Assmt Initial Assessment Reason for Hospitalization: SVT Functional Status/Living Situation Patient Presentation: Dede was lying in bed when CM meet with her. Her Terrence was with her at the time and Dede asked that he answer questions for her as she was tired. The couple lives in a single family home in [facility] [place]; they have no children. 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 She informed CM that she resigned during Covid and never returned to work. She did state that she would like to find a job, just not teaching. 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 She is independent at baseline and does not receive any community services. Town of Residence: [place] Resides with: Spouse ( Terrence) Significant Other/Family: Local Natural Supports: adventist family Employment Status: Unemployed Instrumental Activities of Daily Living (ADLs): Independent Medications Medication Management: No Issues/Barriers identified Advance Directives Advance Directives: Do you have an Advance Directive: Y 02/10/22 09:39 AD On File at [facility]: Y 02/10/22 09:39 Date Asked 09/27/24 09/27/24 11:53 AD Date Reviewed 08/03/24 08/03/24 11:13 COLST On File at [facility] COLST Date Scanned Code Status Resuscitation Status Full Code Insurance Coverage/Financial Issues Insurance: [place] Care Team Visit Care Team Role Provider Type Christelle Bruce APRN MD [facility] STAFF PHYSICIAN Simba Holley Primary Care Provider NON-[facility] STAFF PHYSICIAN Tc Hernández MD Emergency Provider [facility] STAFF PHYSICIAN Magno Perry MD Admit Provider [facility] STAFF PHYSICIAN Attending Provider Discharge Potential Discharge Needs: PCP F/U Appt Anticipated Barriers to Discharge: None Identified Patient/Family Education Needs: Review discharge instructions, discuss Ask Me Three Transportation: Private vehicle Plan: Anticipate Dede will be discharged home with no new services when medically cleared. She will follow up with her community providers and plan of care and transport with family. CM will follow and continue to support discharge planning. Social Determinants of Health Screening Social Determinants of health last assessed in clinic: 09/28/24 Will the Patient Participate in the Screening?: Yes Do you worry about having a steady place to live?: no Problems where you live: no known problems In the past 12 months, have you had to go without electric, gas, oil or water in your home?: no 1. Within the past 12 months, we worried whether our food would run out before we got money to buy more.: Never true 2. Within the past 12 months, the food we bought just didn't last and we didn't have money to get more.: Never true Has lack of transportation kept you from medical appointments or from doing things needed for daily living?: no Has anyone in your life made you feel unsafe or unsupported?: no How hard is it for you to pay for the very basics like food, housing, medical care, and heating? Would you say it is:: Not hard at all Do you want help finding or keeping work or a job?: I do not need or want help If for any reason you need help with day-to-day activities such as bathing, preparing meals, shopping, managing finances, etc., do you get the help you need?: I don?t need any help How often do you feel lonely or isolated from those around you?: Never Do you speak a language other than British at home?: Yes Health Related Social Needs Health related social needs: education (Z55.6) PFSH All Active Problems (Updated 09/27/24 @ 17:38 by RODRIGO SCHNEIDER) Elevated troponin (Acute) Abdominal pain (Acute) Chest pain (Acute) SVT (supraventricular tachycardia) (Chronic) Toe pain, left (Acute) Antibiotic drug intolerance (Acute) Ingrowing nail (Acute) Foot pain (Acute) Anemia (Chronic) Hx anemia, with improvement since summer 2017 2' diet/suppl. Feb 2018, baseline. Monitor q3mos as leukopenia is also issue. Dr. Dillon-goal Iron Saturation 30-50%, Ferritin about 50 per note 06/07/19 Iron deficiency anemia due to dietary causes (Acute) 08/2020 [facility] Hem/Onc (Hx Iron Def, 2014) Chronic leukopenia (Acute 05/21/14) Acute decrease of WBC with Hx chronic leukopenia .. 2.68 (02/07/18) vs 3.39 (October 2017). [ ] Hem ref. Chronic leukopenia (Acute) Reviewed by Dr. Clair Daniels Ear congestion (Acute) requesting ENT Feeling worried (Acute) Elevated TSH (Acute) Anxiety (Acute 11/08/14) Migraine (Acute) GERD (gastroesophageal reflux disease) (Chronic) Improved with diet. Poor tolerance of PPI. Bursitis of left shoulder (Acute) Right carpal tunnel syndrome (Acute) Sleeping difficulty (Acute 04/24/15) Ambar-menopause (Acute 05/16/15) Melasma (Acute) Hot flashes (Acute 04/24/15) Medical History Abnormal auditory perception of both ears Foreign body in ear, bilateral Anemia due to vitamin B12 deficiency B12 WNL, High .. 2020, 2021 Tick bite Dysfunctional uterine bleeding (04/29/12) Bites (06/2018) Unclear scabies? fleas? Hx of this occurred years ago (?)(3 yrs ago) Generalized pruritus (06/2018) Specific bite sites, but unclear whether bite or reaction to bite is what we're seeing and what is itching. Several sites of scratched off previous bite site. H/O anorexia nervosa Ambar-menopause (05/17/15) Missed 2mo of menses. Occassional VMS. Surgical History Status post ovarian cystectomy History of exploratory laparotomy Status post dilation and curettage Laparotomy RLQ pain, normal findings Dilation and curettage SAB Cystectomy, Mini Lap Ovarian 05/23/10; AGE 16 Family History Mother Personal history of malignant neoplasm Uterine CA Father , heart prob. at age 76. Heart disease PACEMAKER Stroke Sister No problems noted. Sister No problems noted. Brother No problems noted. Brother No problems noted. Brother Personal history of malignant neoplasm BRAIN TUMOR Social History Smoking/Tobacco Use Status: Never Smoking risk assessment performed?: Yes Alcohol Intake: never Drug use: Never Substance use type: does not use Housing: house Current gender identity: female What type of physical activity do you participate in: other Details: hiking Do you feel safe at home: Yes Do you feel safe in your relationship?: Yes
--- NOTE | 2024-09-28 09:19 | DSE_ITS ---
Date of service: 09/28/24 Time of Service: 10:02 DS: Diagnosis Discharge Diagnosis (1) SVT (supraventricular tachycardia): Status: Chronic (2) Elevated troponin: Status: Acute (3) Chest pain: Status: Acute Discharge Plan Disposition Patient Disposition: Home Condition: Improving Discharge Details Reason For Visit: SVT Admit Date/Time: 09/27/24 16:29 Admit Provider: Magno Perry Attending Provider: Magno Perry Primary Care Provider: Simba Holley Hospital Course Hospital Course: Reason for Admission: The patient was admitted with complaints of syncope, palpitations, and chest pain. On presentation, she was found to be in supraventricular tachycardia with a heart rate of 186 bpm and altered mental status. She had elevated troponin levels, raising concern for acute coronary syndrome . Clinical Course: Supraventricular Tachycardia: The patient was managed for acute SVT with initial vagal maneuvers and adenosine administration, both of which were unsuccessful. Emergent synchronized cardioversion was performed without success, but her altered mental status improved after the procedure. SVT continued, and the decision was made to closely monitor the patient for potential complications, including ACS, due to elevated troponin levels. Elevated Troponin and Possible ACS: The patient's troponin levels judson from 13 ng/L to 448 ng/L, which raised concern for myocardial injury. The initial chest pain, coupled with the elevated troponin levels, suggested ACS, although the rise could also have been related to the cardioversion. Chest Pain and Electrocardiogram Findings: The patient's chest pain was initially suspected to be related to ACS, but after further investigation (including CT imaging), it was considered secondary to SVT. Electrocardiogram (ECG) showed SVT with a rate of 186 bpm and right axis deviation, which resolved with treatment. Abdominal Pain: The patient reported right upper quadrant abdominal pain, which had worsened over the past 1-2 weeks. A [id number] ultrasound was performed but did not reveal significant findings. The abdominal pain remains unexplained, and further evaluation may be needed after discharge. Large amount of stool in colon per MRI. Hospital Course: * Cardiovascular Management: The patient was started on continuous cardiac monitoring. She remained in SVT for several hours after cardioversion, but her heart rate eventually stabilized. The patient was managed with fluid resuscitation and pain control. * Laboratory Monitoring: Troponin levels were monitored throughout the hospital course, with repeat measurements taken at 1830 and 2130. Levels were trending down at the time of discharge, suggesting that the rise was more likely related to cardioversion rather than acute myocardial injury. * Abdominal Evaluation: Despite the right upper quadrant pain, no obvious pathology was noted on imaging. Liver function tests were normal, and further evaluation may be necessary if the pain persists. * Electrolyte and Thyroid Function: Mild electrolyte abnormalities were corrected, including potassium (3.8) and magnesium (1.8). An elevated TSH (6.33) was noted, suggesting potential thyroid dysfunction, which will require follow-up with her primary care provider. Discharge Condition: The patient is stable for discharge. Her symptoms of chest pain have improved, and her troponin levels are trending downward. Her heart rate and blood pressure are stable, and she is no longer in acute SVT. Discharge Plan: Medications at Discharge: * Continue home medications including: * Melatonin 3 mg daily * Coenzyme Q10 10 mg daily * Vitamin B12 (as per usual schedule) * Albuterol sulfate inhaler (for wheezing or shortness of breath as needed) Follow-up Instructions: * Cardiology Follow-up: * S/p discussion with cardiology based of Hx of similar symptoms in w/o syncope since then- no AV- blocking agent recommended Echocardiogram: Ejection fraction is 60%. Wall motion is normal * Follow up with cardiology as per recommendation and f/u on 30-day cardiac event monitor * Further cardiology evaluation if symptoms (e.g., chest pain, palpitations) persist or worsen. * Thyroid Evaluation: * Follow up with primary care provider regarding elevated TSH (6.33), indicating potential hypothyroidism. * Further evaluation of thyroid function is recommended. * Abdominal Pain: * If right upper quadrant abdominal pain persists or worsens, consider further imaging or evaluation by gastroenterology. * Electrolyte Monitoring: * Follow-up with lab testing to monitor electrolytes, particularly potassium and magnesium, as electrolyte imbalances may contribute to arrhythmias. * Pain Management: * Continue pain management as needed, with appropriate medications. Ensure close monitoring for any new pain or discomfort. Patient Education: * The patient was educated on signs and symptoms of ACS, including chest pain, shortness of breath, and dizziness. She was instructed to seek immediate care if these symptoms reoccur. * The patient was advised to maintain a healthy lifestyle, continue her prescribed medications, and follow up with her healthcare providers as directed. Home Meds and New Rx's Prescriptions: New polyethylene glycol 3350 [Miralax] 17 gram powder in packet 17 g PO BID Qty: 14 0RF Rx Instructions: Only take as needed if diarrhea develops Continued albuterol sulfate [ProAir HFA] 90 mcg/actuation HFA aerosol inhaler 2 puff inhalation Q6H PRN (Reason: shortness of breath or wheezing) Qty: 8.5 2RF Rx Instructions: Use for shortness of breath or wheezing in hot weather melatonin 3 MG tablet extended release 3 mg PO HS Qty: 90 coenzyme Q10 [Co Q-10] 10 MG capsule 10 mg PO as directed Rx Instructions: pt not sure of the strength 12/07/17 cgc turmeric (bulk) 1 GM powder 1 gm Miscellaneous DAILY vitamin b 12 IM .weekly Discharge Instructions Instructions: Supraventricular tachycardia (SVT) Stand Alone Forms: Nursing Discharge Form Referrals: Simba Holley [Primary Care Provider] - 10/03/24 11:30 am Activity:: Activity as Tolerated Equipment/Supplies:: No Equipment Needed Diet:: heart healthy Discharge Orders Discharge Orders: Discharge Order (Routine); Ordered 09/28/24 Ordered By: Christelle Bruce Other Ambulatory Orders: 14 Day Jewelry Racker (Routine) Timeframe: 10 Day Facility: [facility] - Location: Respiratory Therapy Ordered By: Christelle Bruce DS: Summary Time Spent with Patient providing and/or coordinating discharge services: Greater than 30 minutes Status at Discharge Functional status at discharge: independent ambulation Overall status at discharge: patient is not back to baseline Mental Status: mental status grossly normal Speech and Movement: speech and movement normal Mood: congruent mood and anxious mood Affect: normal affect and anxious affect Quality:SDOH Health Related Social Needs: Health related social needs education (Z55.6) Exam Narrative Exam Narrative: 65 years old female patient looking younger than stated age, no acute distress, alert oriented x 3, no focal deficit, clear lungs, regular rate and rhythm, NSR HR 62, S1-S2 no murmur moves all 4 extremities, abdomen is non-distended soft , nontender. Psych Mental Status: mental status grossly normal Speech and Movement: speech and movement normal Mood: congruent mood and anxious mood Affect: normal affect and anxious affect DS: Data Vitals/I&O Vitals and I&O: Vital Signs Temperature 36.0 C L 09/28/24 07:47 Temperature Source Temporal Artery Scan 09/28/24 07:47 Pulse 58 L 09/28/24 07:47 Pulse Rhythm Regular 09/27/24 17:50 Pulse 75 09/27/24 17:20 Respiratory Rate 16 09/28/24 07:47 Respiratory Effort Normal 09/27/24 17:50 Respiratory Depth Normal 09/27/24 17:50 Respiratory Pattern Normal 09/27/24 17:50 Blood Pressure 105/66 09/28/24 07:47 Blood Pressure Mean 79 05/22/25 07:47 Blood Pressure Position Supine 09/27/24 12:00 Pulse Oximetry 98 09/28/24 07:47 Respiratory End-tidal CO2 24 09/27/24 15:40 Oxygen Delivery Method Room Air 09/28/24 07:47 Oxygen Flow Rate 0 09/28/24 07:47 Pain Level 0 09/28/24 07:47 Comment pt refused vitals, will try to get when pt rings next 09/28/24 03:19 Intake & Output 09/27/24 09/27/24 09/28/24 11:59 23:59 11:59 Weight 50.2 kg Other: Urine Color Yellow Urine Appearance Clear Data Completed and Pending Labs on day of discharge: Labs from last 24 hours 09/28/24 09:07: Troponin I Pending 09/28/24 06:46: WBC 3.03 L, RBC 3.76 L, Hgb 11.0 L, Hct 33.3 L, MCV 89, MCH 29.3, MCHC 33.0, RDW 15.0 H, Plt Count 200, MPV 11.2 H, Immature Gran % 0.3, Neutrophils % 34.7, Lymphocytes % 56.1, Monocytes % 7.3, Eosinophils % 1.3, Basophils % 0.3, Nucleated RBC % 0.0, Absolute Neutrophils 1.05 L, Absolute Lymphocytes 1.70, Absolute Monocytes 0.22, Absolute Eosinophils 0.04, Absolute Basophils 0.01, Sodium 143, Potassium 4.0, Chloride 108 H, Carbon Dioxide 25.1, Anion Gap 9.9, BUN 7, Creatinine 0.7, Est GFR (CKD-EPI 2020) 97.72, Glucose 82, Calcium 9.1, Magnesium 1.8 09/27/24 23:50: Troponin I 1540 H* 09/27/24 20:10: Troponin I 1563 H* 09/27/24 18:55: Troponin I 1438 H* 09/27/24 15:10: Troponin I 448 H* 09/27/24 12:55: Troponin I 52 H* 09/27/24 11:53: WBC 3.37 L, RBC 4.37, Hgb 12.8, Hct 38.9, MCV 89, MCH 29.3, MCHC 32.9, RDW 15.0 H, Plt Count 300, MPV 11.6 H, Immature Gran % 0.0, Neutrophils % 20.5, Lymphocytes % 73.3, Monocytes % 4.7, Eosinophils % 1.2, Basophils % 0.3, Nucleated RBC % 0.0, Absolute Neutrophils 0.69 L, Absolute Lymphocytes 2.47, Absolute Monocytes 0.16, Absolute Eosinophils 0.04, Absolute Basophils 0.01, RBC Morphology Normal, Sodium 142, Potassium 3.8, Chloride 106, Carbon Dioxide 23.7, Anion Gap 12.3 H, BUN 7, Creatinine 1.0, Est GFR (CKD-EPI 2020) 63.70, Glucose 121 H, Calcium 9.6, Magnesium 1.8, Total Bilirubin 0.4, AST 26, ALT 25, Alkaline Phosphatase 73, Troponin I 13, Total Protein 7.3, Albumin 4.1, TSH 6.33 H, Free T4 1.05 PFSH All Active Problems (Updated 09/27/24 @ 17:38 by RODRIGO SCHNEIDER) Elevated troponin (Acute) Abdominal pain (Acute) Chest pain (Acute) SVT (supraventricular tachycardia) (Chronic) Toe pain, left (Acute) Antibiotic drug intolerance (Acute) Ingrowing nail (Acute) Foot pain (Acute) Anemia (Chronic) Hx anemia, with improvement since summer 2017 2' diet/suppl. Feb 2018, baseline. Monitor q3mos as leukopenia is also issue. Dr. Dillon-goal Iron Saturation 30-50%, Ferritin about 50 per note 06/07/19 Iron deficiency anemia due to dietary causes (Acute) 08/2020 [facility] [place] [facility] (Hx Iron Def, 2014) Chronic leukopenia (Acute 05/21/14) Acute decrease of WBC with Hx chronic leukopenia .. 2.68 (02/07/18) vs 3.39 (October 2017). [ ] Hem ref. Chronic leukopenia (Acute) Reviewed by Dr. Clair Daniels Ear congestion (Acute) requesting ENT Feeling worried (Acute) Elevated TSH (Acute) Anxiety (Acute 11/08/14) Migraine (Acute) GERD (gastroesophageal reflux disease) (Chronic) Improved with diet. Poor tolerance of PPI. Bursitis of left shoulder (Acute) Right carpal tunnel syndrome (Acute) Sleeping difficulty (Acute 04/24/15) Ambar-menopause (Acute 05/16/15) Melasma (Acute) Hot flashes (Acute 04/24/15) Medical History Abnormal auditory perception of both ears Foreign body in ear, bilateral Anemia due to vitamin B12 deficiency B12 WNL, High .. 2020, 2021 Tick bite Dysfunctional uterine bleeding (04/29/12) Bites (06/2018) Unclear scabies? fleas? Hx of this occurred years ago (?)(3 yrs ago) Generalized pruritus (06/2018) Specific bite sites, but unclear whether bite or reaction to bite is what we're seeing and what is itching. Several sites of scratched off previous bite site. H/O anorexia nervosa Ambar-menopause (05/17/15) Missed 2mo of menses. Occassional VMS. Surgical History Status post ovarian cystectomy History of exploratory laparotomy Status post dilation and curettage Laparotomy RLQ pain, normal findings Dilation and curettage SAB Cystectomy, Mini Lap Ovarian 05/23/10; AGE 16 Family History Mother Personal history of malignant neoplasm Uterine CA Father , heart prob. at age 76. Heart disease PACEMAKER Stroke Sister No problems noted. Sister No problems noted. Brother No problems noted. Brother No problems noted. Brother Personal history of malignant neoplasm BRAIN TUMOR Social History Smoking/Tobacco Use Status: Never Smoking risk assessment performed?: Yes Alcohol Intake: never Drug use: Never Substance use type: does not use Housing: house Current gender identity: female What type of physical activity do you participate in: other Details: hiking Do you feel safe at home: Yes Do you feel safe in your relationship?: Yes Time Spent with Patient Time Spent with Patient: 70-84 minutes4 Time was spent: preparing to see the patient(eg.review tests), obtaining and/or reviewing separately otained hiistory, ordering medications,tests, procedures, referring, communicating with other health care connector, indepentently interpreting results, counseling the patient and care coordination
[2024-09-28 09:35] LABS: Troponin I 1071 ng/L (<or=51)
--- NOTE | 2024-09-28 13:30 | DI.US_ITS ---
APPROVED REPORT EXAM: Comprehensive 2D, Doppler, and color-flow Echocardiogram Patient Location: In-Patient Room/Bed: 208 Complaint Manager: Dina Fregoso RDCS (AE) Indications: SVT Other Information Study Quality: Adequate. Technically limited study due to body habitus patient had pain with scanning . Not able to compress.. Conclusion Normal left ventricular wall thickness and chamber size. Ejection fraction is 60%. Wall motion is n ormal Normal right ventricular size and function Both atria are normal in size There is no structural or hemodynamically significant valvular disease Estimated right ventricular systolic pressure is 23 mmHg Wall motion Left Ventricle The left ventricle is normal size. The left ventricular systolic function is normal. The left ventric ular ejection fraction is within the normal range. There is normal left ventricular wall thickness. T here is normal LV segmental wall motion. There is no ventricular septal defect visualized. LVEF is 60 %. Right Ventricle The right ventricle is normal size. The right ventricular systolic function is normal. Atria The left atrium size is grossly normal. The right atrium size is grossly normal. The interatrial sept um is intact with no evidence for an atrial septal defect. Aortic Valve The aortic valve is normal in structure. Aortic valve is trileaflet. There is no aortic valvular sten osis. No aortic regurgitation is present. Mitral Valve The mitral valve is normal in structure. No evidence of mitral valve stenosis. Trace mitral regurgita tion. Tricuspid Valve The tricuspid valve is normal in structure. There is no tricuspid valve stenosis. Trace tricuspid reg urgitation. The RVSP is 22.6 mmHg. Pulmonic Valve The pulmonary valve is normal in structure. There is no pulmonic valvular stenosis. There is no pulmo master valvular regurgitation. Great Vessels The aortic root is normal in size. The ascending aorta is normal in size. IVC is normal in size and c ollapses >50% with inspiration. Pericardium There is no pericardial effusion. 2D Dimensions IVSD d PLAX 0.70 cm F: 0.6-1.0 Ao Root d 3.03 cm F: 2.7 - 3.3 LVPW d PLAX 0.75 cm F: 0.6 - 1.0 Ao Asc Diam d 2.63 cm F: 2.3 - 3.1 LVID d PLAX 4.26 cm F: 3.8 - 5.2 LVDs 3.00 cm F: 2.2 - 3.5 LV EF Teichholz 57.0 % FS 29.60 % LV EDV (Teich) 81.2 mL LV ESV (Teich) 34.9 mL M-Mode TAPSE 2.87 cm (M/F) >1.7 Auto EF LV EDV A4C 72.1 mL LV EDV A2C 79.6 mL LV EDV BP 75.7 mL LV ESV A4C 31.6 mL LV ESV A2C 33.1 mL LV ESV BP 32.3 mL LVEF(%) A4C 56.2 % LVEF(%) A2C 58.4 % LVEF(%) BP 57.4 % LV SV A4C 40.5 ml LV SV A2C 46.5 ml LV SV BP 43.4 ml LV CO A4C 2.2 L/min LV CO A2C 2.6 L/min LV CO BP 2.4 L/min HR A4C 55.13 BPM HR A2C 55.73 BPM LV EDV Index (BP) LV Diastology MV E' medial 0.082 (>0.07 m/s) MV E Vmax 0.57 (0.4-1.3 m/s) MV E/E' MED 6.96 (<14) MV A Vmax 0.60 (0.4-1.3 m/s) MV E' lateral 0.067 (>0.1 m/s) E/A Ratio 0.9 MV E/E' LAT 8.54 (<14) MV E' Average 0.075 m/s MV E/E'(average) 7.67 Aortic Valve AoV Vmax 1.15 m/s LVOT Vmax 0.94 m/s AoV Peak Grad 5.3 mmHg LVOT Peak Grad 3.5 mmHg AoV Area (Vmax) 2.10 cm2 LVOT VTI 0.202 m AoV VTI 0.263 m LVOT Mean Grad 1.6 mmHg AoV Mean Virgil. 0.79 m/s LVOT SV 52.00 mL AoV Mean Grad 2.9 mmHg LVOT Diam s 1.80 cm AoV Area (VTI) 1.98 cm2 AV Regurg Peak Gr. 5.29 mmHg Velocity Ratio 0.82 Mitral Valve MV DT 225 (160-240 msec) MV Vmax TIPS 0.55 m/s MV Mean Grad 0.4 (<2mmHg) MV VTI 0.175 m Pulmonary Valve PV Vmax 0.62 (0.5-1.5 m/s) PV Peak Grad 1.6 mmHg PV Mean Virgil 0.50 m/s PV Mean Grad 1.1 mmHg Tricuspid Valve RA Pressure 3.00 mmHg TR Vmax 2.21 m/s TV S' 0.14 m/s TR Peak Grad 19.6 mmHg RVSP (TR) 22.6 mmHg
== END 2024-09-28 16:54 | disposition home or self-care (01) ==
LOC: ER 16:16 → MS 17:38
PROVIDERS: Family Medicine; Nurse Practitioner Family; Admitting Provider Family Medicine; Emergency Provider Student in an Organized Health Care Education/Training Program; PCP Family Medicine; Responsible Provider Nurse Practitioner Acute Care; Visit Provider Family Medicine
DX: I47.10 Supraventricular tachycardia, unspecified (principal); R07.89 Other chest pain; R74.8 Abnormal levels of other serum enzymes; R41.82 Altered mental status, unspecified; R55 Syncope and collapse; D50.9 Iron deficiency anemia, unspecified; F41.9 Anxiety disorder, unspecified; K21.9 Gastro-esophageal reflux disease without esophagitis; G43.909 Migraine, unspecified, not intractable, without status migrainosus; Z79.899 Other long term (current) drug therapy; R94.6 Abnormal results of thyroid function studies
CPT/HCPCS: 00123; 36415; 36416; 71275; 76705; 80048; 80053; 82962; 93005; 96374; 96375; 96376; 99291; 83735; 84439; 84443; 84484; 85025; 93010; 93306; 99222; 99239; G0378; J0153; J2250; J3010; J3490

== ENCOUNTER 2024-10-03 14:46 | Outpatient (CLI) | payer BC, SELFPAY | END 2024-10-03 14:47 | disposition home or self-care (01) | PROVIDERS: PCP Family Medicine; Visit Provider Nurse Practitioner Acute Care | DX: R00.0 Tachycardia, unspecified (principal); I49.8 Other specified cardiac arrhythmias | CPT/HCPCS: 93270 ==

== ENCOUNTER 2024-11-02 12:44 | Outpatient (CLI) | payer BC, SELFPAY ==
--- NOTE | 2024-11-02 13:23 | W.CARDEVENT ---
Date of service: 11/02/24 Time of Service: 13:23 Cardiac Event Recorder Referring Provider:: Christelle Bruce Indications:: Tachycardia Cardiac Event Note: This is a cardiac event monitor. Patient was monitored for 15 days. Rhythm throughout was sinus with an average heart rate of 66. Minimum was 49, maximum 125. There were no significant ventricular dysrhythmias. There was no atrial fibrillation, no SVT, no high-grade AV block, no pauses greater than 3 seconds. Reported symptoms correlated to sinus rhythm
== END 2024-11-02 12:45 | disposition home or self-care (01) ==
LOC: CARDOPNVT 12:44
PROVIDERS: PCP Family Medicine; Visit Provider Internal Medicine Cardiovascular Disease
DX: R00.0 Tachycardia, unspecified (principal); I49.8 Other specified cardiac arrhythmias
CPT/HCPCS: 93272